=== PATIENT | female | born 1965 | race Caucasian/White ===

== ENCOUNTER 2016-11-10 10:55 | Emergency (ER) | payer BC ==
[~2016-11-10] VITALS: Ht 170.2 cm; Wt 158.7 kg
[~2016-11-10 10:55] MED LIST: ACET-1311 PO; CZR50 PO; DOCU100C31 PO; FERR1TAB13 PO; FLNIN NAE; HYDR25TA4 PO; METR1GEL3 TOP; NYST100098 TOP; PRLSR20 PO; SALI0.6517 INTNAS; SENN-61 PO
[2016-11-10 11:02] VITALS: TEMP 37.3; Ht 170.2 cm; Wt 158.7 kg
--- NOTE | 2016-11-10 12:23 | EMERGENCY ROOM VISIT NOTE ---
History First contact with patient: 11:29 Chief Complaint: CARDIAC ASSESSMENT Stated Complaint: PINCHING ON LT SIDE OF CHEST, RIDDLE, TIRED Nursing Triage Summary: Pt was at her doctors office this morning. While she was there her systolic blood pressure was elevated. Pt states that her blood pressure medication was changed a couple of weeks ago. Pt also noted that she has a pinching feeling near her sternum. She stated that she has also experienced some SOB and weakness recently. History of Present Illness The patient is a 51 year old female who presents to the Emergency Room with complaints of chest pain and headache and fatigue. The patient states that she has had intermittent "pinching" in the left side of her chest for the last 4 days. She cannot think of any alleviating or aggravating factors. The patient rates her chest discomfort a 2/10. She has a history of SVT and had surgery to freeze the area as she was in an investigational study for SVT. She has not had any trouble since then. She has had hypertension and recently had her medications changed. The patient also has had pain in the right calf. The patient had back surgery in March. She has had significant limited mobility since the surgery. She denies any recent illness, earache, sore throat, cough. She denies any abdominal pain, nausea or vomiting. Review of Systems A 10 system review of systems was completed with positives and pertinent negatives listed in the HPI. Past Medical/Surgical History Medical Problems: (1) Chronic Sinusitis Nos (2) Diverticulosis Colon (W/O Ment Of Hemorrhage) (3) Gastro-Esophageal Reflux Disease Without Esophagitis (4) Hypertension (5) Lumbar degenerative disc disease (6) Obesity, Nos (7) Obstructive Sleep Apnea (Adult) (Pediatric) (8) Paroxysmal supraventricular tachycardia Surgical Problems: (1) History of arthroscopic knee surgery (2) History of tubal ligation (3) Normal sigmoidoscopy Family History Diabetes mellitus FH: breast cancer FH: diabetes mellitus FH: ovarian cancer Hypertension Rectal cancer Social History Smoking Status: Never Smoker Alcohol Use: none Drug Use: none Marital Status: Housing Status: lives with family Occupation Status: employed Current/Historical Medications Scheduled Acetaminophen (Tylenol), 650 MG PO BID Amlodipine (Norvasc), 5 MG PO DAILY Losartan Potassium & Hydrochlo (Hyzaar), 1 TAB PO DAILY Omeprazole (Prilosec), 20 MG PO BID Scheduled PRN Fluticasone Propionate (Flonase Nasal [place]), 2 SPRAYS ALON QPM PRN for Nasal Congestion Allergies Coded Allergies: Caffeine (Verified Allergy, Severe, SVT, 06/11/16) NO KNOWN DRUG ALLERGIES (Unverified Allergy, Unknown, NONE, 06/11/16) Physical Exam Vital Signs Date Time Temp Pulse Resp B/P Pulse Ox O2 Delivery O2 Flow Rate FiO2 11/10/16 16:51 87 18 144/66 95 11/10/16 15:14 83 11/10/16 15:12 82 20 149/73 96 Room Air 11/10/16 13:16 87 20 132/76 98 Room Air 11/10/16 11:36 91 11/10/16 11:22 95 Room Air 11/10/16 11:02 37.3 101 18 199/91 95 Room Air Physical Exam VITALS: Vitals are noted on the nurse's note and reviewed by myself. Vital signs stable. The patient is afebrile. She is tachycardic with heart rate 104 bpm. Her oxygen saturation is 95% on room air. GENERAL: This is a 51-year-old female, in no acute distress, nondiaphoretic, well-developed well-nourished. SKIN: The skin was without rashes, erythema, edema, or bruising. There is no tenting of the skin. Capillary reflex less than 2 seconds. HEAD: Normocephalic atraumatic. EARS: External auditory canals clear, tympanic membranes pearly shahid without erythema or effusion bilaterally. EYES: Pupils equal round and reactive to light and accommodation. Conjunctivae without injection, sclerae without icterus. Extraocular movements intact. NOSE: Patent, turbinates without inflammation or discharge. No sinus tenderness. MOUTH: Mucous membranes moist. Tonsils are not enlarged. Pharynx without erythema or exudate. Uvula midline. Airway patent. Tongue does not deviate. NECK: Supple without nuchal rigidity. Cervical spine is nontender. No JVD. HEART: Regular rate and rhythm without murmurs gallops or rubs. LUNGS: Clear to auscultation bilaterally without wheezes, rales or rhonchi. No retractions or accessory muscle use. ABDOMEN: Positive bowel sounds x 4. Soft, nontender, without masses or organomegaly. MUSCULOSKELETAL: No muscle atrophy, erythema, or edema noted. Full range of motion in all extremities. Normal gait. Strength 5/5 throughout. NEURO: Patient was alert and oriented to person place and time. No focal neurological deficits. Medical Decision & Procedures ER Provider Diagnostic Interpretation: CHEST ONE VIEW PORTABLE CLINICAL HISTORY: Chest pain. COMPARISON STUDY: Chest radiograph June 11, 2016. FINDINGS: Lung volumes are normal. No consolidation is identified. There is no evidence of pulmonary edema. Cardiomediastinal silhouette is stable. Apparent hazy bibasilar opacities are likely artifactual. Lumbar spine fusion hardware is partially imaged. IMPRESSION: No acute cardiopulmonary findings. [~ rep ct add3]] RIGHT LOWER EXTREMITY VENOUS DOPPLER HISTORY: right leg pain Right COMPARISON STUDY: Bilateral leg venous Doppler 07/06/2014. FINDINGS: There is normal compressibility, flow, and augmentation within the right lower extremity deep venous system. IMPRESSION: No DVT within the right lower extremity Laboratory Results 11/10/16 12:55 Red Blood Count 4.66, Mean Corpuscular Volume 82.8, Mean Corpuscular Hemoglobin 28.3, Mean Corpuscular Hemoglobin Concent 34.2, Mean Platelet Volume 9.2, Neutrophils (%) (Auto) 76.2, Lymphocytes (%) (Auto) 17.3, Monocytes (%) (Auto) 4.5, Eosinophils (%) (Auto) 1.4, Basophils (%) (Auto) 0.2, Neutrophils # (Auto) 6.45, Lymphocytes # (Auto) 1.46, Monocytes # (Auto) 0.38, Eosinophils # (Auto) 0.12, Basophils # (Auto) 0.02 11/10/16 14:13 11/10/16 15:30 Test 11/10/16 12:55 11/10/16 13:07 11/10/16 14:13 11/10/16 15:30 White Blood Count 8.46 K/uL (4.8-10.8) Red Blood Count 4.66 M/uL (4.2-5.4) Hemoglobin 13.2 g/dL (12.0-16.0) Hematocrit 38.6 % (37-47) Mean Corpuscular Volume 82.8 fL (80-100) Mean Corpuscular Hemoglobin 28.3 pg (25-34) Mean Corpuscular Hemoglobin Concent 34.2 g/dl (32-36) Platelet Count 257 K/uL (130-400) Mean Platelet Volume 9.2 fL (7.4-10.4) Neutrophils (%) (Auto) 76.2 % Lymphocytes (%) (Auto) 17.3 % Monocytes (%) (Auto) 4.5 % Eosinophils (%) (Auto) 1.4 % Basophils (%) (Auto) 0.2 % Neutrophils # (Auto) 6.45 K/uL (1.4-6.5) Lymphocytes # (Auto) 1.46 K/uL (1.2-3.4) Monocytes # (Auto) 0.38 K/uL (0.11-0.59) Eosinophils # (Auto) 0.12 K/uL (0-0.5) Basophils # (Auto) 0.02 K/uL (0-0.2) RDW Standard Deviation 44.2 fL (36.4-46.3) RDW Coefficient of Variation 14.6 % (11.5-14.5) Immature Granulocyte % (Auto) 0.4 % Immature Granulocyte # (Auto) 0.03 K/uL (0.00-0.02) Prothrombin Time 10.2 SECONDS (9.0-12.0) Prothromb Time International Ratio 1.0 (0.9-1.1) Activated Partial Thromboplast Time 26.9 SECONDS (21.0-31.0) Partial Thromboplastin Ratio 1.0 D-Dimer 390 ug/L FEU (0-500) Urine Color YELLOW Urine Appearance CLEAR (CLEAR) Urine pH 7.0 (4.5-7.5) Urine Specific [place] 1.005 (1.000-1.030) Urine Protein NEG (NEG) Urine Glucose (UA) NEG (NEG) Urine Ketones NEG (NEG) Urine Occult Blood NEG (NEG) Urine Nitrite NEG (NEG) Urine Bilirubin NEG (NEG) Urine Urobilinogen NEG (NEG) Urine Leukocyte Esterase NEG (NEG) Anion Gap 11.0 mmol/L (3-11) Est Creatinine Clear Calc Drug Dose 163.8 ml/min Estimated GFR () 118.7 Estimated GFR (Non- 102.4 BUN/Creatinine Ratio 18.2 (10-20) Calcium Level 9.9 mg/dl (8.5-10.1) Total Bilirubin 0.5 mg/dl (0.2-1) Alanine Aminotransferase (ALT/SGPT) 52 U/L (12-78) Alkaline Phosphatase 99 U/L (45-117) Creatine Kinase MB 0.9 ng/ml (0.5-3.6) Creatine Kinase MB Ratio (0-3.0) Troponin I < 0.015 ng/ml (0-0.045) Total Protein 8.0 gm/dl (6.4-8.2) Albumin 3.7 gm/dl (3.4-5.0) Globulin 4.3 gm/dl (2.5-4.0) Albumin/Globulin Ratio 0.9 (0.9-2) Thyroid Stimulating Hormone (TSH) 1.450 uIu/ml (0.300-4.500) Aspartate Amino Transf (AST/SGOT) 20 U/L (15-37) Total Creatine Kinase 75 U/L (26-192) Procedure The patient was monitored on a production counter. They maintained a normal sinus rhythm without ectopy. ECG Indication: chest pain Rate (beats per minute): 97 Rhythm: normal sinus Findings: no acute ischemic change Change: no significant change ED Course The patient was seen and examined. Previous visits were reviewed. The patient does not have a fever or leukocytosis. She does not have any significant electrolyte abnormalities. Cardiac enzymes were not elevated. TSH was within normal limits. D-dimer was not elevated. Urinalysis was negative. Ultrasound of the right lower extremity was negative for DVT Chest x-ray does not reveal any acute abnormality The patient has had some intermittent sharp pain in the left side of her chest. It has been there for at least 2 days. It is not exertional. The above workup does not reveal any significant abnormality. This could represent musculoskeletal chest wall pain. The patient was advised to monitor her symptoms closely and return with any worsening symptoms. Otherwise, she should follow-up with her family doctor next week. The case was discussed with Dr. Greenfield and EKG reviewed with him and he agrees with the assessment and treatment plan. Medical Decision DIFFERENTIAL DIAGNOSIS: Aortic dissection, myocarditis, pericarditis, cervical disc disease, costochondritis, herpes zoster, rib fracture, pleuritis, pneumonia , pulmonary embolus, tension pneumothorax, anxiety disorder, somatoform disorder , choledocholithiasis, status, esophagitis, esophageal spasm, esophageal reflux , esophageal rupture, pancreatitis, peptic ulcer disease, cardiac ischemia, ST elevation RI, acute coronary syndrome, arrhythmia, coronary artery vasospasm. vavular heart disease, coronary artery disease, among others. Impression Primary Impression: Chest wall pain Additional Impression: Right calf pain Departure Information Dispostion Home / Self-Care Condition GOOD Referrals Alex Shepherd M.D. (PCP) [facility] Additional Instructions Follow up with your family doctor next week for a recheck Monitor your blood pressures over the next week Return to the emergency Department with any worsening symptoms Problem Qualifiers
--- NOTE | 2016-11-10 12:57 | DIAGNOSTIC IMAGING REPORT ---
CHEST ONE VIEW PORTABLE CLINICAL HISTORY: Chest pain. COMPARISON STUDY: Chest radiograph June 11, 2016. FINDINGS: Lung volumes are normal. No consolidation is identified. There is no evidence of pulmonary edema. Cardiomediastinal silhouette is stable. Apparent hazy bibasilar opacities are likely artifactual. Lumbar spine fusion hardware is partially imaged. IMPRESSION: No acute cardiopulmonary findings. Electronically signed by: Jose Parisi M.D. 11/10/2016 12:55 PM Dictated Date/Time: 11/10/2016 12:54 PM
[2016-11-10 13:13] LABS: BASO % 0.2 %; BASO ABS # 0.02 K/uL (0-0.2); COMPLETE YES; EOS % 1.4 %; HEMATOCRIT 38.6 % (37-47); IG% 0.4 %; LYMPH % 17.3 %; LYMPH ABS # 1.46 K/uL (1.2-3.4); MEAN CELL VOLUME 82.8 fL (80-100); MEAN CORPUSCULAR HEMOGLOBIN 28.3 pg (25-34); MEAN CORPUSCULAR HGB CONC 34.2 g/dl (32-36); MEAN PLATELET VOLUME 9.2 fL (7.4-10.4); MONO % 4.5 %; NEUT % 76.2 %; PLATELET COUNT 257 K/uL (130-400); RED BLOOD COUNT 4.66 M/uL (4.2-5.4); WHITE BLOOD COUNT 8.46 K/uL (4.8-10.8)
[2016-11-10] MEDS ORDERED: LOSA100T2 PO (13:13)
[2016-11-10] MEDS ORDERED: AMLO-110 PO (13:13)
[2016-11-10 13:25] LABS: URINE APPEARANCE CLEAR (CLEAR); URINE BILIRUBIN NEG (NEG); URINE COLOR YELLOW; URINE NITRITE NEG (NEG); URINE SPECIFIC GRAVITY 1.005 (1.000-1.030); UROBILINOGEN NEG (NEG); ZZUR CULT IF INDIC CLEAN CATCH NO
[2016-11-10 13:25] LABS: PROTHROMBIN TIME (PATIENT) 10.2 SECONDS (9.0-12.0)
--- NOTE | 2016-11-10 13:54 | DIAGNOSTIC IMAGING REPORT ---
RIGHT LOWER EXTREMITY VENOUS DOPPLER HISTORY: right leg pain Right COMPARISON STUDY: Bilateral leg venous Doppler 07/06/2014. FINDINGS: There is normal compressibility, flow, and augmentation within the right lower extremity deep venous system. IMPRESSION: No DVT within the right lower extremity Electronically signed by: Marshal Perez M.D. 11/10/2016 1:52 PM Dictated Date/Time: 11/10/2016 1:51 PM
[2016-11-10 14:15] LABS: MANUAL MICROSCOPIC REQUIRED? NO; REVIEW REQ? NO
[2016-11-10 15:18] LABS: ALB/GLOB RATIO 0.9 (0.9-2); ALKALINE PHOSPHATASE 99 U/L (45-117); ALT/SGPT 52 U/L (12-78); BLOOD UREA NITROGEN 11 mg/dl (7-18); BUN/CREATININE RATIO 18.2 (10-20); CALCIUM 9.9 mg/dl (8.5-10.1); CARBON DIOXIDE 26 mmol/L (21-32); CHLORIDE 102 mmol/L (98-107); CREATININE 0.63 mg/dl (0.60-1.20); GLUCOSE 102 mg/dl (70-99); SODIUM 139 mmol/L (136-145)
[2016-11-10 15:56] LABS: POTASSIUM 3.6 mmol/L (3.5-5.1)
[2016-11-10 16:51] VITALS: BP 144/66; PULSE 87; O2SAT 95
== END 2016-11-10 16:53 | disposition home or self-care (01) ==
LOC: C.EDB 10:58 → C.EDC 16:53
DX: R07.89 Other chest pain (principal); M79.661 Pain in right lower leg; I10 Essential (primary) hypertension; K21.0 Gastro-esophageal reflux disease with esophagitis; E66.9 Obesity, unspecified; Z98.51 Tubal ligation status; Z98.890 Other specified postprocedural states

== ENCOUNTER 2017-02-20 18:09 | Emergency (ER) | payer BC ==
[~2017-02-20] VITALS: Ht 170.2 cm; Wt 159.3 kg
[~2017-02-20 18:09] MED LIST changes: +AMLO-110 PO; -CZR50 PO; -DOCU100C31 PO; -FERR1TAB13 PO; -HYDR25TA4 PO; +LOSA100T2 PO; -METR1GEL3 TOP; -NYST100098 TOP; -SALI0.6517 INTNAS; -SENN-61 PO
[2017-02-20] MEDS ORDERED: ACETAMINOPHEN 500 MG TAB PO STA (18:36)
[2017-02-20] MEDS ORDERED: SODIUM CHLORIDE 0.9% 1000ML 1,000 ML IV STA (18:36)
--- NOTE | 2017-02-20 19:10 | EMERGENCY ROOM VISIT NOTE ---
History Report prepared by Mimi: Bartolo Willis Under the Supervision of: Dr. Gage Oreilly M.D. First contact with patient: 18:26 Chief Complaint: URINARY SYMPTOMS Stated Complaint: LOW GRADE FEVER, PAIN IN LEFT&RIGHT SIDES History of Present Illness The patient is a 51 year old female who presents to the Emergency Room with complaints of a constant fever starting last night. She is additionally complaining of left back pain,left abdominal pain, and chills. The patient states that she has an increased frequency of urination and some pressure. The patient denies any vomiting or a history of diabetes or diverticulitis. The patient additionally states that she has not been eating very well. She states that she has a history of bladder infections and back surgery. Source of History: patient Onset: last night Position: other (fever) Quality: other Timing: constant Associated Symptoms: + abdominal pain, + back pain, + chills, No vomiting Review of Systems See HPI for pertinent positives & negatives. A total of 10 systems reviewed and were otherwise negative. Past Medical & Surgical Medical Problems: (1) Chronic Sinusitis Nos (2) Diverticulosis Colon (W/O Ment Of Hemorrhage) (3) Gastro-Esophageal Reflux Disease Without Esophagitis (4) Hypertension (5) Lumbar degenerative disc disease (6) Obesity, Nos (7) Obstructive Sleep Apnea (Adult) (Pediatric) (8) Paroxysmal supraventricular tachycardia Surgical Problems: (1) History of arthroscopic knee surgery (2) History of tubal ligation (3) Normal sigmoidoscopy Family History Diabetes mellitus FH: breast cancer FH: diabetes mellitus FH: ovarian cancer Hypertension Rectal cancer Social History Smoking Status: Never Smoker Alcohol Use: none Drug Use: none Marital Status: Housing Status: lives with family Occupation Status: employed Current/Historical Medications Scheduled Acetaminophen (Tylenol), 650 MG PO DAILY Amlodipine (Norvasc), 5 MG PO DAILY Cefdinir (Omnicef), 300 MG PO Q12H Ciprofloxacin Hcl (Cipro), 500 MG PO BID Furosemide (Furosemide), 20 MG PO QAM Losartan Potassium (Cozaar), 100 MG PO QAM Meloxicam (Meloxicam), 15 MG PO QAM Scheduled PRN Omeprazole (Prilosec), 20 MG PO DAILY PRN for PRN Allergies Coded Allergies: Caffeine (Verified Allergy, Severe, SVT, 02/22/17) NO KNOWN DRUG ALLERGIES (Unverified Allergy, Unknown, NONE, 02/20/17) Physical Exam Vital Signs Date Time Temp Pulse Resp B/P Pulse Ox O2 Delivery O2 Flow Rate FiO2 02/20/17 22:07 73 20 107/65 94 02/20/17 21:22 36.7 76 20 124/68 96 Room Air 02/20/17 21:04 Room Air 02/20/17 19:47 37.4 02/20/17 18:18 39.1 106 20 139/78 94 Room Air Physical Exam GENERAL: Patient is uncomfortable appearing and in mild distress. HEENT: No acute trauma, normocephalic atraumatic, mucous membranes moist, no nasal congestion, no scleral icterus. NECK: No stridor, no adenopathy, no meningismus, trachea is midline. LUNGS: No dyspnea. Clear to auscultation and equal bilaterally. No wheeze, no rhonchi. HEART: tachycardic rate and rhythm. No murmurs, rubs, gallops appreciated. ABDOMEN: Soft, nontender, bowel sounds positive, no masses appreciated, no peritonitis. BACK: No midline tenderness, bilateral tenderness to palpation. EXTREMITIES: Normal motion all extremities, no cyanosis, no edema. NEUROLOGIC: Alert and oriented, no acute motor or sensory deficits, no focal weakness, cranial nerves grossly intact. SKIN: No rash, no jaundice, no diaphoresis. Medical Decision & Procedures Laboratory Results 02/20/17 19:00 Red Blood Count 4.60, Mean Corpuscular Volume 85.9, Mean Corpuscular Hemoglobin 28.5, Mean Corpuscular Hemoglobin Concent 33.2, Mean Platelet Volume 9.8, Neutrophils (%) (Auto) 84.2, Lymphocytes (%) (Auto) 8.1, Monocytes (%) (Auto) 6.8, Eosinophils (%) (Auto) 0.4, Basophils (%) (Auto) 0.1, Neutrophils # (Auto) 11.43, Lymphocytes # (Auto) 1.10, Monocytes # (Auto) 0.92, Eosinophils # (Auto) 0.06, Basophils # (Auto) 0.02 02/20/17 19:00 Test 02/20/17 19:00 02/20/17 19:43 White Blood Count 13.59 K/uL (4.8-10.8) Red Blood Count 4.60 M/uL (4.2-5.4) Hemoglobin 13.1 g/dL (12.0-16.0) Hematocrit 39.5 % (37-47) Mean Corpuscular Volume 85.9 fL (80-100) Mean Corpuscular Hemoglobin 28.5 pg (25-34) Mean Corpuscular Hemoglobin Concent 33.2 g/dl (32-36) Platelet Count 271 K/uL (130-400) Mean Platelet Volume 9.8 fL (7.4-10.4) Neutrophils (%) (Auto) 84.2 % Lymphocytes (%) (Auto) 8.1 % Monocytes (%) (Auto) 6.8 % Eosinophils (%) (Auto) 0.4 % Basophils (%) (Auto) 0.1 % Neutrophils # (Auto) 11.43 K/uL (1.4-6.5) Lymphocytes # (Auto) 1.10 K/uL (1.2-3.4) Monocytes # (Auto) 0.92 K/uL (0.11-0.59) Eosinophils # (Auto) 0.06 K/uL (0-0.5) Basophils # (Auto) 0.02 K/uL (0-0.2) RDW Standard Deviation 42.3 fL (36.4-46.3) RDW Coefficient of Variation 13.6 % (11.5-14.5) Immature Granulocyte % (Auto) 0.4 % Immature Granulocyte # (Auto) 0.06 K/uL (0.00-0.02) Urine Color YELLOW Urine Appearance CLOUDY (CLEAR) Urine pH 6.5 (4.5-7.5) Urine Specific [place] 1.021 (1.000-1.030) Urine Protein TRACE (NEG) Urine Glucose (UA) NEG (NEG) Urine Ketones NEG (NEG) Urine Occult Blood 2+ (NEG) Urine Nitrite NEG (NEG) Urine Bilirubin NEG (NEG) Urine Urobilinogen NEG (NEG) Urine Leukocyte Esterase LARGE (NEG) Urine WBC (Auto) >30 /hpf (0-5) Urine RBC (Auto) >30 /hpf (0-4) Urine Hyaline Casts (Auto) 0 /lpf (0-5) Urine Epithelial Cells (Auto) >30 /lpf (0-5) Urine Bacteria (Auto) 2+ (NEG) Urine Pathogenic Casts /lpf (0) Anion Gap 9.0 mmol/L (3-11) Est Creatinine Clear Calc Drug Dose 104.5 ml/min Estimated GFR () 75.4 Estimated GFR (Non- 65.1 BUN/Creatinine Ratio 14.5 (10-20) Calcium Level 9.2 mg/dl (8.5-10.1) Bedside Lactic Acid Venous 0.88 mmol/L (0.90-1.70) Date/Time Source Procedure Growth Status 02/20/17 19:00 Urine,Catheterized Urine Culture - Final Proteus Mirabilis Complete Laboratory results as reviewed by me. Medications Administered Medications (Trade) Dose Ordered Sig/Yasmine Route Start Time Stop Time Status Last Admin Dose Admin Sodium Chloride (Nss 1000ml) 1,000 ml @ 999 mls/hr Q1H1M STAT IV 02/20/17 18:36 02/20/17 19:36 DC 02/20/17 18:36 999 MLS/HR Acetaminophen (Tylenol Tab) 1,000 mg NOW STAT PO 02/20/17 18:36 02/20/17 18:38 DC 02/20/17 18:50 1,000 MG Ceftriaxone Sodium (Rocephin Inj) 1 gm NOW STAT IV 02/20/17 20:58 02/20/17 21:00 DC 02/20/17 21:18 1 GM ED Course 1825: The patient was evaluated in room B3. A complete history and physical exam was performed. 1835: Tylenol Tab 1000mg PO, Sodium Chloride 1000 ml @ 999 mls/hr IV 2013: I reevaluated the patient, and she is feeling much better after fluids. Her fever has improved, and she doesn't need anything else right now 2057: Rocephin Inj 1gm IV 2105: I reassessed the patient, and she is feeling much better. She is going to see if she is able to get up and walk around. 2143: Reevaluated the patient, and she feels better. Discussed results and discharge instructions: She verbalized understanding and agreement. The patient is ready for discharge. Medical Decision Differential: Viral, Pharyngitis, Cellulitis, Pneumonia, Influenza, Meningitis, Sepsis, Bacteremia, UTI/Pyelonephritis, Endocrine, Toxicologic, amongst other pathologies entertained. Pleasant 51 yr old female arrives ill with UTI symptoms. Exam and story consistent with pyelo and given positive UA and mod wbc elevation this seems accurate. Lactic acid ok and vitals look good. Feeling vastly improved with IV fluids and anti-pyretics. Able to ambulate without significant issues. Given IV rocephin post blood cultures. She is not in severe sepsis and is much improved after treatment. Discussed at length inpatient vs outpatient treatment. She is comfortable with going home. She lives with . Will treat with PO Omnicef given rocephin used here initially. She does not have abdominal TTP nor evidence of acute intraabdominal emergency. Discussed at length symptoms to monitor and that RTED immediately if worsening symptoms or other concerns. Discussed blood cultures and they may take several days to return. Impression Primary Impression: Pyelonephritis Scribe Attestation The scribe's documentation has been prepared under my direction and personally reviewed by me in its entirety. I confirm that the note above accurately reflects all work, treatment, procedures, and medical decision making performed by me. Departure Information Dispostion Home / Self-Care Prescriptions Cefdinir (Omnicef) 300 Mg Cap 300 MG PO Q12H for 10 Days, #20 CAP Prov: Gage Oreilly M.D. 02/20/17 Referrals Alex Shepherd M.D. (PCP) Forms HOME CARE DOCUMENTATION FORM, IMPORTANT VISIT INFORMATION Patient Instructions My [facility], Pyelonephritis - [facility]
[2017-02-20 19:49] LABS: BASO % 0.1 %; BASO ABS # 0.02 K/uL (0-0.2); COMPLETE YES; EOS % 0.4 %; HEMATOCRIT 39.5 % (37-47); IG% 0.4 %; LYMPH % 8.1 %; MEAN CELL VOLUME 85.9 fL (80-100); MEAN CORPUSCULAR HEMOGLOBIN 28.5 pg (25-34); MEAN CORPUSCULAR HGB CONC 33.2 g/dl (32-36); MEAN PLATELET VOLUME 9.8 fL (7.4-10.4); MONO % 6.8 %; NEUT % 84.2 %; PLATELET COUNT 271 K/uL (130-400); WHITE BLOOD COUNT 13.59 K/uL (4.8-10.8)
[2017-02-20 20:07] LABS: BUN/CREATININE RATIO 14.5 (10-20); CALCIUM 9.2 mg/dl (8.5-10.1); CREATININE 0.99 mg/dl (0.60-1.20); POTASSIUM 3.7 mmol/L (3.5-5.1)
[2017-02-20] MEDS ORDERED: MELO15TA4 PO (20:19)
[2017-02-20] MEDS ORDERED: LOSA100T65 PO (20:19)
[2017-02-20] MEDS ORDERED: LSX20 PO (20:19)
[2017-02-20 20:54] LABS: URINE APPEARANCE CLOUDY (CLEAR); URINE BILIRUBIN NEG (NEG); URINE COLOR YELLOW; URINE EPITHELIAL CELL AUTO >30 /lpf (0-5); URINE NITRITE NEG (NEG); URINE PH 6.5 (4.5-7.5); URINE SPECIFIC GRAVITY 1.021 (1.000-1.030); UROBILINOGEN NEG (NEG); ZZURINE CULT IF INDIC CATH YES
[2017-02-20 20:57] LABS: MANUAL MICROSCOPIC REQUIRED? NO; REVIEW REQ? YES
[2017-02-20] MEDS ORDERED: CEFTRIAXONE SOD INJ 1 GM ADDVIAL IV STA (20:58)
[2017-02-20 21:04] VITALS: Ht 170.2 cm; Wt 159.3 kg
[2017-02-20 21:22] VITALS: TEMP 36.7
[2017-02-20] MEDS ORDERED: CEFD1CAP14 PO (21:47)
[2017-02-20 22:07] VITALS: BP 107/65; PULSE 73; O2SAT 94
--- NOTE | 2017-02-22 12:37 | Pharmacy Progress Note ---
ED Pharmacist Culture FollowUp Date of Service: Feb 22, 2017. Patient was sent home with a prescription for cefdinir, which should cover the Proteus growing from the patient's urine culture. However, 1 of 2 blood cultures are positive for Gram positive cocci and Gram positive bacilli. Potentially contaminants, but follow-up will be important. Called patient. She reports improvement of symptoms, but is still very "worn down". Notified of result. Emphasized the importance of re-check blood cultures and re-evaluation today, either at PCP or at ED. Patient noted she will return to ED today.
== END 2017-02-20 22:08 | disposition home or self-care (01) ==
LOC: C.EDB 18:10
DX: N12 Tubulo-interstitial nephritis, not specified as acute or chronic (principal); K21.9 Gastro-esophageal reflux disease without esophagitis; I10 Essential (primary) hypertension; G47.33 Obstructive sleep apnea (adult) (pediatric); M51.36 Other intervertebral disc degeneration, lumbar region; Z68.43 Body mass index [BMI] 50.0-59.9, adult; E66.9 Obesity, unspecified; Z98.51 Tubal ligation status; Z83.3 Family history of diabetes mellitus; Z80.3 Family history of malignant neoplasm of breast; Z80.41 Family history of malignant neoplasm of ovary; Z80.0 Family history of malignant neoplasm of digestive organs; Z82.49 Family history of ischemic heart disease and other diseases of the circulatory system; Z79.899 Other long term (current) drug therapy

== ENCOUNTER 2017-02-22 13:00 | Emergency (ER) | payer BC ==
[~2017-02-22] VITALS: Ht 170.2 cm; Wt 158.5 kg
[~2017-02-22 13:00] MED LIST changes: -ACET-1311 PO; +CEFD1CAP14 PO; -FLNIN NAE; -LOSA100T2 PO; +LOSA100T65 PO; +LSX20 PO; +MELO15TA4 PO
[2017-02-22 13:06] VITALS: Ht 170.2 cm; Wt 158.5 kg
[2017-02-22] MEDS ORDERED: SODIUM CHLORIDE 0.9% 1000ML 1,000 ML IV STA (13:22)
[2017-02-22] MEDS ORDERED: SODIUM CHLORIDE 0.9% 1000ML 1,000 ML IV ONE (13:22)
--- NOTE | 2017-02-22 13:27 | EMERGENCY ROOM VISIT NOTE ---
History Report prepared by Mimi: Familia Everett Under the Supervision of: Dr. Reginaldo Brewer M.D. First contact with patient: 13:12 Chief Complaint: ABNORMAL LABS Stated Complaint: KIDNEY INFECTION CALLED FOR BLOODWORK History of Present Illness The patient is a 51 year old female who presents to the Emergency Room after having abnormal labs from a few days ago. The patient was recently in the ED with a kidney infection. Her blood culture results came back today and were abnormal. She was asked to return to the ED to draw labs again. The patient notes that she is feeling a little better since 2 days ago when she was diagnosed with a kidney infection. She had IV antibiotics 2 nights ago and took her first antibiotic orally yesterday. The patient complains that she still feels fatigued and has been sleeping more than usual. The patient also complains of a pressure in her abdomen, dark urine, some back pain, chills, and subjective fever. She denies vomiting, but she notes she has also has a decreased appetite. Source of History: patient, spouse/significant other Onset: few days ago Position: other (global) Associated Symptoms: + abdominal pain (pressure), + back pain, + chills, + fatigue (sleeping more), + fevers (subjective), + urinary symptoms (darj urine) , No vomiting Note: Other associated symptoms: decreased appetite. Review of Systems See HPI for pertinent positives & negatives. A total of 10 systems reviewed and were otherwise negative. Past Medical & Surgical Medical Problems: (1) Chronic Sinusitis Nos (2) Diverticulosis Colon (W/O Ment Of Hemorrhage) (3) Gastro-Esophageal Reflux Disease Without Esophagitis (4) Hypertension (5) Lumbar degenerative disc disease (6) Obesity, Nos (7) Obstructive Sleep Apnea (Adult) (Pediatric) (8) Paroxysmal supraventricular tachycardia Surgical Problems: (1) History of arthroscopic knee surgery (2) History of tubal ligation (3) Normal sigmoidoscopy Old medical records were reviewed. Nurse's notes were reviewed and I agree with. Family History Diabetes mellitus FH: breast cancer FH: diabetes mellitus FH: ovarian cancer Hypertension Rectal cancer Social History Smoking Status: Never Smoker Alcohol Use: none Drug Use: none Marital Status: Housing Status: lives with family Occupation Status: employed Current/Historical Medications Scheduled Acetaminophen (Tylenol), 650 MG PO DAILY Amlodipine (Norvasc), 5 MG PO DAILY Cefdinir (Omnicef), 300 MG PO Q12H Ciprofloxacin Hcl (Cipro), 500 MG PO BID Furosemide (Furosemide), 20 MG PO QAM Losartan Potassium (Cozaar), 100 MG PO QAM Meloxicam (Meloxicam), 15 MG PO QAM Scheduled PRN Omeprazole (Prilosec), 20 MG PO DAILY PRN for PRN Allergies Coded Allergies: Caffeine (Verified Allergy, Severe, SVT, 02/22/17) NO KNOWN DRUG ALLERGIES (Unverified Allergy, Unknown, NONE, 02/20/17) Physical Exam Vital Signs Date Time Temp Pulse Resp B/P Pulse Ox O2 Delivery O2 Flow Rate FiO2 02/22/17 15:25 36.9 66 16 102/57 97 02/22/17 14:33 62 18 118/53 98 Room Air 02/22/17 13:06 36.9 78 20 165/98 98 Room Air Physical Exam General: Non ill-appearing middle-aged female, no acute distress. HEENT: Normal cephalic atraumatic. Pupils are equal round and reactive to light. Extraocular movements are intact. Oropharynx is pink with moist mucous membranes. No swelling of the mouth lips or tongue. Neck: Supple with a midline trachea. No meningeal signs or stiffness, no JVD or bruits. No Stridor. Chest: Clear to auscultation bilaterally. No wheezes or rhonchi. No increased work of breathing. Heart: regular rate and rhythm. Abdomen: Soft nontender, nondistended without rebound guarding or rigidity. Extremities: No cyanosis clubbing or edema. No calf tenderness or assymetry Spine/Back. Non tender to palpation. No CVA tenderness Skin: Good turgor without rashes. Neurologic exam: Cranial nerves two through 12 are intact. Motor and sensation are intact and symmetrical throughout. Medical Decision & Procedures Laboratory Results 02/22/17 13:33 Red Blood Count 4.36, Mean Corpuscular Volume 85.6, Mean Corpuscular Hemoglobin 28.7, Mean Corpuscular Hemoglobin Concent 33.5, Mean Platelet Volume 9.2, Neutrophils (%) (Auto) 78.9, Lymphocytes (%) (Auto) 12.9, Monocytes (%) (Auto) 5.9, Eosinophils (%) (Auto) 1.9, Basophils (%) (Auto) 0.1, Neutrophils # (Auto) 5.36, Lymphocytes # (Auto) 0.88, Monocytes # (Auto) 0.40, Eosinophils # (Auto) 0.13, Basophils # (Auto) 0.01 02/22/17 13:33 Test 02/22/17 13:33 White Blood Count 6.80 K/uL (4.8-10.8) Red Blood Count 4.36 M/uL (4.2-5.4) Hemoglobin 12.5 g/dL (12.0-16.0) Hematocrit 37.3 % (37-47) Mean Corpuscular Volume 85.6 fL (80-100) Mean Corpuscular Hemoglobin 28.7 pg (25-34) Mean Corpuscular Hemoglobin Concent 33.5 g/dl (32-36) Platelet Count 196 K/uL (130-400) Mean Platelet Volume 9.2 fL (7.4-10.4) Neutrophils (%) (Auto) 78.9 % Lymphocytes (%) (Auto) 12.9 % Monocytes (%) (Auto) 5.9 % Eosinophils (%) (Auto) 1.9 % Basophils (%) (Auto) 0.1 % Neutrophils # (Auto) 5.36 K/uL (1.4-6.5) Lymphocytes # (Auto) 0.88 K/uL (1.2-3.4) Monocytes # (Auto) 0.40 K/uL (0.11-0.59) Eosinophils # (Auto) 0.13 K/uL (0-0.5) Basophils # (Auto) 0.01 K/uL (0-0.2) RDW Standard Deviation 43.4 fL (36.4-46.3) RDW Coefficient of Variation 13.8 % (11.5-14.5) Immature Granulocyte % (Auto) 0.3 % Immature Granulocyte # (Auto) 0.02 K/uL (0.00-0.02) Anion Gap 8.0 mmol/L (3-11) Est Creatinine Clear Calc Drug Dose 117.1 ml/min Estimated GFR () 86.9 Estimated GFR (Non- 75.0 BUN/Creatinine Ratio 13.3 (10-20) Calcium Level 9.1 mg/dl (8.5-10.1) Total Bilirubin 0.5 mg/dl (0.2-1) Direct Bilirubin 0.1 mg/dl (0-0.2) Aspartate Amino Transf (AST/SGOT) 19 U/L (15-37) Alanine Aminotransferase (ALT/SGPT) 29 U/L (12-78) Alkaline Phosphatase 89 U/L (45-117) Total Protein 7.2 gm/dl (6.4-8.2) Albumin 3.2 gm/dl (3.4-5.0) Lipase 65 U/L (73-393) Laboratory studies as stated above per my review. Medications Administered Medications (Trade) Dose Ordered Sig/Yasmine Route Start Time Stop Time Status Last Admin Dose Admin Sodium Chloride 1,000 ml @ 999 mls/hr Q1H1M STAT IV 02/22/17 13:22 02/22/17 14:22 DC 02/22/17 13:36 999 MLS/HR Sodium Chloride 1,000 ml @ 150 mls/hr Q6H40M ONCE IV 02/22/17 13:22 02/22/17 20:01 02/22/17 14:25 150 MLS/HR Daptomycin/Sodium Chloride (Cubicin IV/Nss 50ml) 69 ml @ 120 mls/hr NOW STAT IV 02/22/17 13:30 02/22/17 14:04 DC 02/22/17 14:25 120 MLS/HR Ciprofloxacin (Cipro Tab) 500 mg NOW STAT PO 02/22/17 14:26 02/22/17 14:27 DC 02/22/17 14:36 500 MG ED Course 1312: Past medical records reviewed. The patient was evaluated in room C2, and a complete history and physical examination were performed. 1322: Ordered NSS 1000 ml @ 150 mls/hr IV, NSS 1000 ml @ 999 mls/hr IV. 1330: Ordered Daptomycin 950 mg/ NSS 69 ml @ 120 mls/hr IV. 1426: Ordered Cipro Tab 500 mg PO. 1436: At this time, I reevaluated the patient and she was feeling better. 1447: Upon reevaluation, the patient is resting. I discussed the results and treatment plan with her. She verbalized agreement of the treatment plan. The patient was discharged home. Medical Decision Differential diagnoses include sepsis, UTI, pyelonephritis, skin contamination, or electrolyte or metabolic abnormality. This patient comes in as described above. She was placed in room C2. Is here for follow-up after having positive blood cultures. I reviewed them and reviewed her case. The urine culture was positive for Proteus. One blood culture was negative and a second was positive for gram-positive cocci. It may be a contaminant as this is a different organism within the urine and the other one was negative. She looks well on exam she is afebrile here she has no flank tenderness when I tap on her she is starting to feel better she just feels tired. Her abdomen is benign. IV access established every repeated another set of blood cultures and blood work. Her white count has diminished significantly to 6 from 13. She has normal kidney function. I did discuss this with Mellisa, our ED pharmacist, and she recommended daptomycin. She agrees that most likely this is a contaminant. The patient did receive IV daptomycin. This will give her coverage for the next 24 hours well the cultures give us more information. Again clinically she is doing that her and looks well. I reviewed her cultures the urine was pansensitive. She feels that Cipro of better pyelonephritis coverage so I gave her Cipro 500 mg by mouth here and we are going to switch her antibiotic to Cipro 500 mg twice a day. I recommend she follow up with her doctor tomorrow and return to ER if: Fever, worsening of symptoms, not tolerate fluids, any new problems or concerns. Impression Primary Impression: Pyelonephritis Additional Impression: Blood culture positive for microorganism Scribe Attestation The scribe's documentation has been prepared under my direction and personally reviewed by me in its entirety. I confirm that the note above accurately reflects all work, treatment, procedures, and medical decision making performed by me. Departure Information Dispostion Home / Self-Care Prescriptions Ciprofloxacin Hcl (CIPRO) 500 Mg Tab 500 MG PO BID, #20 TAB Prov: Reginaldo Brewer M.D. 02/22/17 Referrals Alex Shepherd M.D. (PCP) Forms HOME CARE DOCUMENTATION FORM, IMPORTANT VISIT INFORMATION, WORK / SCHOOL INSTRUCTIONS Patient Instructions My [facility] Additional Instructions Rest. Drink plenty of fluids. Return if: Worsening of symptoms, shortness of breath, fever or chills, any new problems or concerns Use Cipro 500 mg twice a day for 10 daysreplaces your current antibiotic Follow-up with your doctor tomorrow for recheck. Problem Qualifiers
[2017-02-22] MEDS ORDERED: SODIUM CHLORIDE 0.9% IV STA (13:30)
[2017-02-22] MEDS ORDERED: DAPTOMYCIN IV STA (13:30)
[2017-02-22 13:42] LABS: BASO % 0.1 %; BASO ABS # 0.01 K/uL (0-0.2); COMPLETE YES; EOS % 1.9 %; HEMATOCRIT 37.3 % (37-47); IG% 0.3 %; LYMPH % 12.9 %; LYMPH ABS # 0.88 K/uL (1.2-3.4); MEAN CELL VOLUME 85.6 fL (80-100); MEAN CORPUSCULAR HEMOGLOBIN 28.7 pg (25-34); MEAN CORPUSCULAR HGB CONC 33.5 g/dl (32-36); MEAN PLATELET VOLUME 9.2 fL (7.4-10.4); MONO % 5.9 %; NEUT % 78.9 %; PLATELET COUNT 196 K/uL (130-400); RED BLOOD COUNT 4.36 M/uL (4.2-5.4)
[2017-02-22] MEDS ORDERED: ACET-1311 PO (14:00)
[2017-02-22 14:10] LABS: BUN/CREATININE RATIO 13.3 (10-20); CREATININE 0.88 mg/dl (0.60-1.20); POTASSIUM 3.5 mmol/L (3.5-5.1)
[2017-02-22 14:13] LABS: CALCIUM 9.1 mg/dl (8.5-10.1)
[2017-02-22] MEDS ORDERED: CIPROFLOXACIN 500 MG TAB PO STA (14:26)
[2017-02-22] MEDS ORDERED: CIPR-255 PO (14:55)
[2017-02-22 15:25] VITALS: BP 102/57; PULSE 66; TEMP 36.9; O2SAT 97
== END 2017-02-22 15:25 | disposition home or self-care (01) ==
LOC: C.EDB 13:03 → C.EDC 15:25
DX: N12 Tubulo-interstitial nephritis, not specified as acute or chronic (principal); R78.89 Finding of other specified substances, not normally found in blood; I10 Essential (primary) hypertension; G47.33 Obstructive sleep apnea (adult) (pediatric)

== ENCOUNTER → 2017-04-10 | Outpatient (CLI) | payer BC ==
[~2017-04-10] MED LIST changes: +ACET-1311 PO; -CEFD1CAP14 PO; +CIPR-255 PO
== END | disposition home or self-care (01) ==
LOC: C.LABSPEC 17:30
PROVIDERS: ATTEND Podiatrist Foot & Ankle Surgery
DX: L60.0 Ingrowing nail (principal)

== ENCOUNTER 2017-11-28 20:13 | Inpatient (IN) | payer OTHER ==
[~2017-11-28] VITALS: Ht 170.2 cm; Wt 157.0 kg
[~2017-11-28 20:13] MED LIST changes: -LOSA100T65 PO; -LSX20 PO
[2017-11-28] MEDS ORDERED: LOSA100T65 PO (20:19)
[2017-11-28] MEDS ORDERED: LSX20 PO (20:19)
[2017-11-28] MEDS ORDERED: SODIUM CHLORIDE 0.9% 1000ML 1,000 ML IV STA (21:25)
[2017-11-28] MEDS ORDERED: ACETAMINOPHEN 500 MG TAB PO STA (21:25)
[2017-11-28] MEDS ORDERED: GABAPENTIN 100 MG CAP PO STA (21:40)
[2017-11-28] MEDS ORDERED: OPTIRAY 320 IV PRN (21:45)
[2017-11-28] MEDS ORDERED: NAPR1TAB9 PO (21:49)
[2017-11-28] MEDS ORDERED: FLUT0.15 NAE (21:49)
[2017-11-28] MEDS ORDERED: GABA-112 PO (21:49)
[2017-11-28] MEDS ORDERED: NRN100 PO (21:49)
[2017-11-28 22:37] LABS: BASO % 0.2 %; BASO ABS # 0.03 K/uL (0-0.2); EOS % 0.5 %; EOS ABS # 0.07 K/uL (0-0.5); HEMATOCRIT 38.4 % (37-47); IG# 0.05 K/uL (0.00-0.02); LYMPH % 14.8 %; LYMPH ABS # 2.08 K/uL (1.2-3.4); MEAN CELL VOLUME 85.3 fL (80-100); MEAN CORPUSCULAR HEMOGLOBIN 28.9 pg (25-34); MEAN CORPUSCULAR HGB CONC 33.9 g/dl (32-36); MEAN PLATELET VOLUME 9.7 fL (7.4-10.4); MONO % 6.8 %; MONO ABS # 0.95 K/uL (0.11-0.59); NEUT % 77.3 %; NEUT ABS # 10.83 K/uL (1.4-6.5); PLATELET COUNT 260 K/uL (130-400); RED CELL DISTRIBUTION WIDTH CV 14.5 % (11.5-14.5); WHITE BLOOD COUNT 14.01 K/uL (4.8-10.8)
[2017-11-28 22:53] LABS: ALBUMIN 3.5 gm/dl (3.4-5.0); ALT/SGPT 26 U/L (12-78); BLOOD UREA NITROGEN 14 mg/dl (7-18); CALCIUM 9.3 mg/dl (8.5-10.1); CARBON DIOXIDE 24 mmol/L (21-32); CREATININE 0.83 mg/dl (0.60-1.20); GLUCOSE 157 mg/dl (70-99); LIPASE 65 U/L (73-393); POTASSIUM 3.7 mmol/L (3.5-5.1); SODIUM 135 mmol/L (136-145)
[2017-11-28 22:56] LABS: ALKALINE PHOSPHATASE 88 U/L (45-117); AST/SGOT 12 U/L (15-37); TOTAL PROTEIN 7.6 gm/dl (6.4-8.2)
[2017-11-28 23:25] LABS: INFLUENZA B ANTIGEN Neg for Influ B (NEG)
[2017-11-28] MEDS ORDERED: CEFTRIAXONE SOD INJ 1 GM ADDVIAL IV STA (23:37)
[2017-11-29] VITALS (7 sets, daily range): BP systolic 114–150; BP diastolic 61–82; PULSE 68–85; TEMP 36.8–37.6; O2SAT 94–99; Ht 170.2 cm; Wt 157.0 kg
[2017-11-29] MEDS ORDERED: KETOROLAC TROMETHAMINE 30 MG/ML VIAL IV STA (00:32)
[2017-11-29] MEDS ORDERED: PIPERACILLIN/TAZOBACTAM 4.5 GM/100ML D5W IV STA (00:34)
[2017-11-29] MEDS ORDERED: NSS + 20MEQ KCL 1000ML 1,000 ML IV SCH (00:45)
[2017-11-29] MEDS ORDERED: NSS + 20MEQ KCL 1000ML 1,000 ML IV ONE (01:30)
[2017-11-29] MEDS ORDERED: TRAMADOL HCL 50 MG TAB PO PRN (01:30)
[2017-11-29] MEDS ORDERED: ACETAMINOPHEN 325 MG TAB PO PRN (01:30)
[2017-11-29] MEDS ORDERED: LORAZEPAM 2 MG/ML 1 ML VIAL IV PRN (01:30)
[2017-11-29] MEDS ORDERED: MoRPHine SULFATE 4 MG/ML 1 ML CARP\\VIAL IV PRN (01:30)
[2017-11-29] MEDS ORDERED: PROCHLORPERAZINE INJ 5 MG in SYRINGE 4 ML IV PRN (01:30)
[2017-11-29] MEDS ORDERED: LORAZEPAM INJ 0.5 MG in SYRINGE 0.75 ML IV PRN (02:00)
--- NOTE | 2017-11-29 02:23 | HISTORY & PHYSICAL EXAMINATION ---
DATE OF ADMISSION: 11/29/2017 PRIMARY CARE PHYSICIAN: Alex Shepherd MD. CHIEF COMPLAINT: Left flank pain. HISTORY OF PRESENT ILLNESS: History obtained from patient and records. Medical history significant for hypertension, chronic back pain status prior surgery, PSVT status post-ablation, sleep apnea on CPAP, recurrent UTI. Patient seen at the ER last January 2017 for flank pain, probable pyelonephritis. Cultures grew Proteus mirabilis. Patient prescribed cefdinir, discharged home, improved. Outpatient renal ultrasound showed a probable 8 mm upper pole left renal parenchymal calculus - not likely related to infection as per PCP. Patient had another bout of UTI late last year resolved with outpatient Cipro. A few days history of achy flank pain more on the left, bladder discomfort. Fever, no chills, no hematuria. No chest pain, no shortness of breath. At the Emergency Room, the patient received Zosyn and Ceftriaxone for sepsis. MEDICAL HISTORY: As above. SURGERIES: Back surgery, gynecologic procedures, knee surgery. HOME MEDICATIONS: Include Flonase, furosemide, gabapentin, and Cozaar, Aleve. ALLERGIES: CAFFEINE. FAMILY HISTORY: Diabetes, heart disease, colon cancer. PERSONAL AND SOCIAL HISTORY: Nonsmoker, no chronic ETOH intake, disabled. REVIEW OF SYSTEMS: As per HPI, all 10 systems reviewed, all other ROS negative. PHYSICAL EXAMINATION: VITAL SIGNS: Blood pressure was noted to be 128/60, pulse rate 107 later 79, RR 18, temp 38 GENERAL: Obese, slightly uncomfortable. Very pleasant. No respiratory distress. SKIN: Normal color, warm. HEENT: [place] palpebral conjunctivae. No ptosis. Dry mucosa. NECK: Short, supple. CHEST: Clear auscultation, no tenderness. HEART: Regular rate and rhythm. No murmur. ABDOMEN: Soft, NT BACK : tenderness on the left flank . EXTREMITIES: Minimal LE edema, no tenderness. No gross deformities. NEUROLOGIC: Coherent. No gross focality. LABORATORY DATA: Hemoglobin was noted to be 13, hematocrit 34, white cell 14, platelets noted to be 260. Sodium 136, potassium 3.7, chloride 103, CO2 24, BUN 40, creatinine 0.8, glucose 157. UA nitrite positive. trace occult blood, WBC est is positive. CT abdomen and pelvis initial read large calculus left upper pole, renal calyces 2.5 x 1.6 x 2.3 cm ASSESSMENT: 1. Sepsis secondary to complicated UTI Urolithiasis 2. Hypertension, slightly elevated. 3. Hyperglycemia rule out diabetes. PLAN: GMF CS, Cefepime IV fluids. Urology consult RE urolithiasis (ER physician already in touch with Dr. Mckeon, urologist on-call.) Check hemoglobin A1c. DVT prophylaxis, Lovenox subQ. Full code. MTDD
--- NOTE | 2017-11-29 03:25 | EMERGENCY ROOM VISIT NOTE ---
History Report prepared by Mimi: Nette Chavez Under the Supervision of: Dr. Pollo Zarate M.D. First contact with patient: 21:25 Chief Complaint: FEVER Stated Complaint: HIGH FEVER, BACK SIDE PAIN AND BLADDER PRESSURE History of Present Illness The patient is a 52 year old female who presents to the Emergency Room with complaints of a worsening urinary symptoms starting yesterday. The patient states that she recently just got over a bladder and kidney infection that she took Cipro for. She states that she now has a pain in her side and her back. She describes the pain as a pressure. The patient currently rates her pain as a 6/10 in severity. She notes that it is worse when she has to wear her back brace. She reports that she has the brace from a prior surgery. The patient notes that she takes Gabapentin 100 mg five times a day for the pain. She notes that she takes an Aleve twice a day as well. She states that she has been going very frequently and has some bladder incontinence. She reports that the bladder incontinence has been going on for 4-6 months. She notes that she does try exercises to help with it. The patient complains of chills and a fever. Pt denies LOC, headache, diaphoresis, visual changes, neck pain, chest pain, breathing difficulties, nausea, vomiting, melena, hematochezia, numbness, weakness, lymphadenopathy, rash, or other complaints. Source of History: patient Onset: yesterday Position: other (global) Symptom Intensity: 6/10 Quality: pressure Timing: worsening Associated Symptoms: + fevers, + chills, + abdominal pain, + back pain Review of Systems See HPI for pertinent positives and negatives. A total of ten systems were reviewed and were otherwise negative. Past Medical & Surgical Medical Problems: (1) Chronic Sinusitis Nos (2) Diverticulosis Colon (W/O Ment Of Hemorrhage) (3) Gastro-Esophageal Reflux Disease Without Esophagitis (4) Hypertension (5) Lumbar degenerative disc disease (6) Obesity, Nos (7) Obstructive Sleep Apnea (Adult) (Pediatric) (8) Paroxysmal supraventricular tachycardia (9) Sepsis Surgical Problems: (1) History of arthroscopic knee surgery (2) History of tubal ligation (3) Normal sigmoidoscopy Family History Diabetes mellitus FH: breast cancer FH: diabetes mellitus FH: ovarian cancer Hypertension Rectal cancer Social History Smoking Status: Never Smoker Alcohol Use: none Drug Use: none Marital Status: Housing Status: lives with family Occupation Status: employed Current/Historical Medications Scheduled Fluticasone Propionate (Nasal) (Flonase Allergy Relief), 2 SPRAYS ALON BID Furosemide (Furosemide), 2,040 MG PO QAM Gabapentin (Gabapentin), 100 MG PO TID Gabapentin (Neurontin), 200 MG PO QD@2000 Losartan Potassium (Cozaar), 100 MG PO QAM Naproxen (Aleve), 220 MG PO BID Allergies Coded Allergies: Caffeine (Verified Allergy, Severe, SVT, 02/22/17) Physical Exam Vital Signs Date Time Temp Pulse Resp B/P (MAP) Pulse Ox O2 Delivery O2 Flow Rate FiO2 11/29/17 00:38 79 20 149/84 98 Room Air 11/28/17 22:57 81 11/28/17 22:41 98 20 143/92 95 11/28/17 20:31 39.1 107 18 128/76 96 Room Air Physical Exam GENERAL: Awake, alert, well-appearing, in no distress HENT: Normocephalic, atraumatic. Oropharynx unremarkable. EYES: Normal conjunctiva. Sclera non-icteric. NECK: Supple. No nuchal rigidity. FROM. No JVD. RESPIRATORY: Clear to auscultation. CARDIAC: Regular rate, normal rhythm. Extremities warm and well perfused. Pulses equal. ABDOMEN: Soft, non-distended. No tenderness to palpation. No rebound or guarding. No masses. RECTAL: Deferred. MUSCULOSKELETAL: Chest examination reveals no tenderness. The back is symmetrical on inspection without obvious abnormality. There is mild CVA tenderness to palpation. No joint edema. LOWER EXTREMITIES: Calves are equal size bilaterally and non-tender. No edema. No discoloration. NEURO: Normal sensorium. No sensory or motor deficits noted. SKIN: No rash or jaundice noted. Medical Decision & Procedures ER Provider Diagnostic Interpretation: Radiology results as stated below per my review and radiologist interpretation: CT ABDOMEN & PELVIS With Contrast: Large calculus in the left upper pole renal calyces, measuring 2.5 x 1.6 x 2.3 cm. Small nonobstructive right lower pole renal calculi. No hydronephrosis or ureteral calculus. Recommended clinical correlation and correlation with urinalysis. No bowel obstruction, bowel wall thickening, ascites or free air. No evidence of acute appendicitis. Degenerative and postsurgical changes of the spine. No fracture. Incidental findings: Small left ovarian follicle. Small fat-containing umbilical hernia. Radiologist: Jane Jaramillo MD Study ready at 23:43 and initial results transmitted at 00:12. Laboratory Results 11/28/17 22:01 Red Blood Count 4.50, Mean Corpuscular Volume 85.3, Mean Corpuscular Hemoglobin 28.9, Mean Corpuscular Hemoglobin Concent 33.9, Mean Platelet Volume 9.7, Neutrophils (%) (Auto) 77.3, Lymphocytes (%) (Auto) 14.8, Monocytes (%) (Auto) 6.8, Eosinophils (%) (Auto) 0.5, Basophils (%) (Auto) 0.2, Neutrophils # (Auto) 10.83, Lymphocytes # (Auto) 2.08, Monocytes # (Auto) 0.95, Eosinophils # (Auto) 0.07, Basophils # (Auto) 0.03 11/28/17 22:01 Test 11/28/17 21:50 11/28/17 22:01 11/28/17 22:40 11/29/17 00:51 Urine Color YELLOW Urine Appearance CLOUDY (CLEAR) Urine pH 7.0 (4.5-7.5) Urine Specific [place] 1.013 (1.000-1.030) Urine Protein NEG (NEG) Urine Glucose (UA) NEG (NEG) Urine Ketones NEG (NEG) Urine Occult Blood TRACE (NEG) Urine Nitrite POS (NEG) Urine Bilirubin NEG (NEG) Urine Urobilinogen NEG (NEG) Urine Leukocyte Esterase LARGE (NEG) Urine WBC (Auto) >30 /hpf (0-5) Urine RBC (Auto) 0-4 /hpf (0-4) Urine Hyaline Casts (Auto) 1-5 /lpf (0-5) Urine Epithelial Cells (Auto) 10-20 /lpf (0-5) Urine Bacteria (Auto) 4+ (NEG) White Blood Count 14.01 K/uL (4.8-10.8) Red Blood Count 4.50 M/uL (4.2-5.4) Hemoglobin 13.0 g/dL (12.0-16.0) Hematocrit 38.4 % (37-47) Mean Corpuscular Volume 85.3 fL (80-100) Mean Corpuscular Hemoglobin 28.9 pg (25-34) Mean Corpuscular Hemoglobin Concent 33.9 g/dl (32-36) Platelet Count 260 K/uL (130-400) Mean Platelet Volume 9.7 fL (7.4-10.4) Neutrophils (%) (Auto) 77.3 % Lymphocytes (%) (Auto) 14.8 % Monocytes (%) (Auto) 6.8 % Eosinophils (%) (Auto) 0.5 % Basophils (%) (Auto) 0.2 % Neutrophils # (Auto) 10.83 K/uL (1.4-6.5) Lymphocytes # (Auto) 2.08 K/uL (1.2-3.4) Monocytes # (Auto) 0.95 K/uL (0.11-0.59) Eosinophils # (Auto) 0.07 K/uL (0-0.5) Basophils # (Auto) 0.03 K/uL (0-0.2) RDW Standard Deviation 45.0 fL (36.4-46.3) RDW Coefficient of Variation 14.5 % (11.5-14.5) Immature Granulocyte % (Auto) 0.4 % Immature Granulocyte # (Auto) 0.05 K/uL (0.00-0.02) Anion Gap 8.0 mmol/L (3-11) Est Creatinine Clear Calc Drug Dose 121.1 ml/min Estimated GFR () 92.7 Estimated GFR (Non- 79.9 BUN/Creatinine Ratio 17.3 (10-20) Calcium Level 9.3 mg/dl (8.5-10.1) Magnesium Level 2.1 mg/dl (1.8-2.4) Total Bilirubin 0.5 mg/dl (0.2-1) Direct Bilirubin < 0.1 mg/dl (0-0.2) Aspartate Amino Transf (AST/SGOT) 12 U/L (15-37) Alanine Aminotransferase (ALT/SGPT) 26 U/L (12-78) Alkaline Phosphatase 88 U/L (45-117) Total Protein 7.6 gm/dl (6.4-8.2) Albumin 3.5 gm/dl (3.4-5.0) Lipase 65 U/L (73-393) Influenza Type A Antigen Neg for Influ A (NEG) Influenza Type B Antigen Neg for Influ B (NEG) Lactic Acid Level 1.2 mmol/L (0.4-2.0) Laboratory results reviewed by me Medications Administered Medications (Trade) Dose Ordered Sig/Yasmine Route Start Time Stop Time Status Last Admin Dose Admin Sodium Chloride 1,000 ml @ 999 mls/hr Q1H1M STAT IV 11/28/17 21:25 11/28/17 22:25 DC 11/28/17 22:36 999 MLS/HR Acetaminophen (Tylenol Tab) 1,000 mg NOW STAT PO 11/28/17 21:25 11/28/17 21:26 DC 11/28/17 22:36 1,000 MG Gabapentin (Neurontin Cap) 200 mg NOW STAT PO 11/28/17 21:40 11/28/17 21:41 DC 11/28/17 22:36 200 MG Ceftriaxone Sodium (Rocephin Inj) 1 gm NOW STAT IV 11/28/17 23:37 11/28/17 23:38 DC 11/28/17 23:43 1 GM Ketorolac Tromethamine (Toradol Inj) 10 mg NOW STAT IV 11/29/17 00:32 11/29/17 00:33 DC 11/29/17 00:43 10 MG Piperacillin Sod/ Tazobactam Sod (Zosyn Iv) 4.5 gm NOW STAT IV 11/29/17 00:34 11/29/17 00:35 DC 11/29/17 00:43 4.5 GM ED Course 2125: Ordered Tylenol Tab 1000 mg PO, NSS 1000 ml @ 999 mls/hr IV. 3: The patient was evaluated in room C6. A complete history and physical exam was performed. 0: Ordered Gabapentin 200 mg PO. 2337: Ordered Rocephin Inj 1 gm IV. 2351: I reevaluated the patient and she is feeling well. 0026: I discussed the patient's case with Dr. Mckeon- Urology. He would like added coverage for Pseudomonas and recommended Zosyn. He would like her bought in and started on IV antibiotics. 0032: Ordered Toradol Inj 10 mg IV. 0034: Ordered Zosyn IV 4.5 gm IV. 0039: [facility] the [facility] The patient will be evaluated for further treatment and disposition. 0041: I reevaluated the patient and she is still feeling well. Medical Decision Prior records/ancillary studies reviewed. Triage Nursing notes reviewed and agree them. Additional history obtained from the family. The patient's history was concerning for flank and abdominal pain. Differential diagnosis: Etiologies such as UTI, renal colic, appendicitis, diverticulitis, mesenteric ischemia, aortic pathology, infections, inflammatory bowel disease, PUD, biliary pathology, as well as others were entertained. Physical examination findings: As above. ER treatment provided: Normal saline hydration Toradol Tylenol IV Rocephin The patient requested her evening gabapentin On reassessment the patient felt better. IV Zosyn Diagnostic interpretation by me: The labs revealed a mild leukocytosis on CBC. Chemistry panel unremarkable. Urinalysis revealed UTI. Imaging studies: CT of the abdomen and pelvis as above. Consultation: A consultation was placed with the urologist asset protection associate Dr. Mckeon. The case was discussed and diagnostics were reviewed. Given the stone and UTI he recommended additional antibiotic coverage to include that for pseudomonas. Zosyn was chosen. The patient will come into the hospitalist service and urology will be consulted. [facility] The patient was evaluated in the ER for further treatment. Medication Reconcilliation Current Medication List: was personally reviewed by me Blood Pressure Screening Patient's blood pressure: Elevated blood pressure Will be further monitored by the hospitalist. Consults Time Called: 002 Consulting Physician: Dr. Milton Garcia Returned Call: 002 I discussed the patient's case with Dr. Milton Garcia. He would like added coverage for Pseudomonas and recommended Zosyn. He would like her bought in and started on IV antibiotics. Additional Consults: Time Called: 003 Consulted Physician: [facility] Returned Call: 003 Additional Comments: Discussed the patient's case with Dr. Miryam Wright. The patient will be evaluated for further treatment and disposition. Impression Primary Impression: Pyelonephritis Scribe Attestation The scribe's documentation has been prepared under my direction and personally reviewed by me in its entirety. I confirm that the note above accurately reflects all work, treatment, procedures, and medical decision making performed by me. Departure Information Dispostion Being Evaluated By Hospitalist Referrals No Doctor, Assigned (PCP) Patient Instructions My [facility]
[2017-11-29] MEDS: CEFEPIME IV 2,000 MG in SYRINGE 7.5 ML IV SCH ×2 (05:42→18:27)
[2017-11-29 05:57] LABS: BASO % 0.2 %; BASO ABS # 0.02 K/uL (0-0.2); EOS % 0.6 %; EOS ABS # 0.06 K/uL (0-0.5); HEMOGLOBIN 11.4 g/dL (12.0-16.0); IG# 0.04 K/uL (0.00-0.02); LYMPH % 20.4 %; LYMPH ABS # 1.89 K/uL (1.2-3.4); MEAN CELL VOLUME 86.1 fL (80-100); MEAN CORPUSCULAR HEMOGLOBIN 28.9 pg (25-34); MEAN CORPUSCULAR HGB CONC 33.5 g/dl (32-36); MEAN PLATELET VOLUME 9.4 fL (7.4-10.4); MONO % 7.3 %; MONO ABS # 0.68 K/uL (0.11-0.59); NEUT % 71.1 %; NEUT ABS # 6.58 K/uL (1.4-6.5); PLATELET COUNT 207 K/uL (130-400); RED CELL DISTRIBUTION WIDTH CV 14.4 % (11.5-14.5); RED CELL DISTRIBUTION WIDTH SD 45.4 fL (36.4-46.3); WHITE BLOOD COUNT 9.27 K/uL (4.8-10.8)
[2017-11-29 06:11] LABS: INR 1.1 (0.9-1.1)
[2017-11-29 06:14] LABS: HEMOGLOBIN A1C 5.8 % (4.5-5.6)
[2017-11-29 06:28] LABS: CALCIUM 8.4 mg/dl (8.5-10.1); CREATININE 0.76 mg/dl (0.60-1.20); POTASSIUM 3.3 mmol/L (3.5-5.1)
[2017-11-29] MEDS ORDERED: POTASSIUM CHLORIDE 10 MEQ TABCR PO STA (06:28)
[2017-11-29] MEDS: GABAPENTIN 100 MG CAP PO SCH ×4 (07:50→20:46)
[2017-11-29] MEDS: LOSARTAN POTASSIUM 50 MG TAB PO SCH (07:50)
[2017-11-29] MEDS: ENOXAPARIN 40 MG/0.4 ML SYR SQ SCH (07:58)
--- NOTE | 2017-11-29 08:02 | DIAGNOSTIC IMAGING REPORT ---
ABD/PELVIS IV CONTRAST ONLY CLINICAL HISTORY: 52 years-old Female presenting with bilat flank pain, temp 39, ? pyelo. TECHNIQUE: Multidetector CT of the abdomen and pelvis was performed after the administration of intravenous contrast. IV contrast: 115 mL of Optiray 320. A dose lowering technique was used consistent with the principles of ALARA (as low as reasonably achievable). COMPARISON: None. CT DOSE (mGy.cm): The estimated cumulative dose is 1803.77 mGy.cm. 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 Lung bases: Minimal basilar opacities, likely atelectasis. Normal heart size. No pericardial or pleural effusion. Liver: Normal morphology. Suggestion of hepatic steatosis. No focal lesion. Patent hepatic vasculature. Biliary: No intrahepatic or extrahepatic biliary ductal dilatation. Normal gallbladder. Pancreas: Normal. Spleen: Normal. Adrenal glands: Normal. Kidneys and ureters: 2 nonobstructing calculi noted at the lower pole the right kidney, the larger measuring 3 mm. No right hydronephrosis. Right ureter normal. Large nonobstructing 25 mm calculus in the upper pole to interpolar region of the left kidney. Mild left perinephric fat stranding. Slight hypoperfusion of the left kidney may be present although the patient's body habitus limits evaluation. No left hydronephrosis. Mild left urothelial thickening suggested. Left ureter otherwise normal. No ureteral calculi or significant periureteral fat stranding. No renal abscess. Bladder: Normal. No bladder calculi. Pelvic organs: Lobular uterine fundus could suggest the presence of fibroids. Ovaries normal. Bowel: Mild stool burden throughout normal caliber colon. No bowel obstruction. The appendix is normal. Peritoneal cavity: No free fluid or intraperitoneal gas. Lymph nodes: Scattered subcentimeter prominent retroperitoneal lymph nodes primarily in the left periaortic region the level of the left renal hilum. Vasculature: Aorta and IVC patent and normal in caliber. Abdominal wall: Fat-containing ventral hernia as well as a fat-containing umbilical hernia. Musculoskeletal: Posterior lumbar fusion hardware with laminectomy changes. Degenerative changes spine. IMPRESSION: 1. Left perinephric fat stranding with subtle urothelial thickening and hypoperfusion of the left kidney in the absence of hydronephrosis. This raises concern for left pyelonephritis. No renal abscess. No CT evidence of cystitis. Correlate with urinalysis. Differential considerations include recently passed calculus, which is considered less likely given the absence of periureteral inflammatory change in the patient's given history of fever. Electronically signed by: Nish Snell M.D. 11/29/2017 8:01 AM Dictated Date/Time: 11/29/2017 7:08 AM
[2017-11-29] MEDS ORDERED: CEFEPIME CONSULT ACTIVE PRN (09:00)
--- NOTE | 2017-11-29 09:24 | Urology Consultation ---
History General Date of Service: Nov 29, 2017. Chief Complaint: left flank pain, fever Primary Care Physician: Alex Shepherd M.D. Pt seen a urologist before?: No History of Present Illness 52 yo female presents to [facility] with c/o left flank pain and fevers. She also reports bladder pressure. Per the pt, she was tx for a UTI several weeks ago, but wasn't sure if it ever resolved. CT on admission showing b/l nephrolithiasis with a large non-obstructing 25mm left staghorn calculus with suspected pyelonephritis. CT reviewed with Dr. Mckeon this morning. She reports she was told she had a small stone in her left kidney by her PCP several months ago, but has no previous hx of stones. White count has normalized since admission. Cr is 0.76. She is currently afebrile. Blood and urine cultures pending. Imaging Imaging: CT Laboratory Last 24 Hours Test 11/28/17 21:50 11/28/17 22:01 11/28/17 22:40 11/29/17 00:51 Urine Color YELLOW Urine Appearance CLOUDY Urine pH 7.0 Urine Specific [place] 1.013 Urine Protein NEG Urine Glucose (UA) NEG Urine Ketones NEG Urine Occult Blood TRACE Urine Nitrite POS Urine Bilirubin NEG Urine Urobilinogen NEG Urine Leukocyte Esterase LARGE Urine WBC (Auto) >30 /hpf Urine RBC (Auto) 0-4 /hpf Urine Hyaline Casts (Auto) 1-5 /lpf Urine Epithelial Cells (Auto) 10-20 /lpf Urine Bacteria (Auto) 4+ White Blood Count 14.01 K/uL Red Blood Count 4.50 M/uL Hemoglobin 13.0 g/dL Hematocrit 38.4 % Mean Corpuscular Volume 85.3 fL Mean Corpuscular Hemoglobin 28.9 pg Mean Corpuscular Hemoglobin Concent 33.9 g/dl Platelet Count 260 K/uL Mean Platelet Volume 9.7 fL Neutrophils (%) (Auto) 77.3 % Lymphocytes (%) (Auto) 14.8 % Monocytes (%) (Auto) 6.8 % Eosinophils (%) (Auto) 0.5 % Basophils (%) (Auto) 0.2 % Neutrophils # (Auto) 10.83 K/uL Lymphocytes # (Auto) 2.08 K/uL Monocytes # (Auto) 0.95 K/uL Eosinophils # (Auto) 0.07 K/uL Basophils # (Auto) 0.03 K/uL RDW Standard Deviation 45.0 fL RDW Coefficient of Variation 14.5 % Immature Granulocyte % (Auto) 0.4 % Immature Granulocyte # (Auto) 0.05 K/uL Sodium Level 135 mmol/L Potassium Level 3.7 mmol/L Chloride Level 103 mmol/L Carbon Dioxide Level 24 mmol/L Anion Gap 8.0 mmol/L Blood Urea Nitrogen 14 mg/dl Creatinine 0.83 mg/dl Est Creatinine Clear Calc Drug Dose 121.1 ml/min Estimated GFR () 92.7 Estimated GFR (Non- 79.9 BUN/Creatinine Ratio 17.3 Random Glucose 157 mg/dl Estimated Average Glucose 120 mg/dl Hemoglobin A1c 5.8 % Calcium Level 9.3 mg/dl Magnesium Level 2.1 mg/dl Total Bilirubin 0.5 mg/dl Direct Bilirubin < 0.1 mg/dl Aspartate Amino Transf (AST/SGOT) 12 U/L Alanine Aminotransferase (ALT/SGPT) 26 U/L Alkaline Phosphatase 88 U/L Total Protein 7.6 gm/dl Albumin 3.5 gm/dl Lipase 65 U/L Influenza Type A Antigen Neg for Influ A Influenza Type B Antigen Neg for Influ B Lactic Acid Level 1.2 mmol/L Test 11/29/17 05:18 White Blood Count 9.27 K/uL Red Blood Count 3.95 M/uL Hemoglobin 11.4 g/dL Hematocrit 34.0 % Mean Corpuscular Volume 86.1 fL Mean Corpuscular Hemoglobin 28.9 pg Mean Corpuscular Hemoglobin Concent 33.5 g/dl Platelet Count 207 K/uL Mean Platelet Volume 9.4 fL Neutrophils (%) (Auto) 71.1 % Lymphocytes (%) (Auto) 20.4 % Monocytes (%) (Auto) 7.3 % Eosinophils (%) (Auto) 0.6 % Basophils (%) (Auto) 0.2 % Neutrophils # (Auto) 6.58 K/uL Lymphocytes # (Auto) 1.89 K/uL Monocytes # (Auto) 0.68 K/uL Eosinophils # (Auto) 0.06 K/uL Basophils # (Auto) 0.02 K/uL RDW Standard Deviation 45.4 fL RDW Coefficient of Variation 14.4 % Immature Granulocyte % (Auto) 0.4 % Immature Granulocyte # (Auto) 0.04 K/uL Prothrombin Time 11.2 SECONDS Prothromb Time International Ratio 1.1 Sodium Level 137 mmol/L Potassium Level 3.3 mmol/L Chloride Level 105 mmol/L Carbon Dioxide Level 27 mmol/L Anion Gap 5.0 mmol/L Blood Urea Nitrogen 13 mg/dl Creatinine 0.76 mg/dl Est Creatinine Clear Calc Drug Dose 133.3 ml/min Estimated GFR () 103.1 Estimated GFR (Non- 88.9 BUN/Creatinine Ratio 16.7 Random Glucose 116 mg/dl Calcium Level 8.4 mg/dl Magnesium Level 2.3 mg/dl Problem List Medical Problems: (1) Blood culture positive for microorganism Status: Acute (2) Chest wall pain Status: Acute (3) Pyelonephritis Status: Acute (4) Pyelonephritis Status: Acute (5) Pyelonephritis Status: Acute (6) Right calf pain Status: Acute (7) UTI (urinary tract infection) Status: Acute Past History hypertension, urinary tract infection (recurrent), other (PVST s/p ablation, sleep apnea on CPAP, chronic back pain ) Past Surgical History: orthopedic surgery (knee surgery), spinal surgery, other (gynecology procedure) Family History Diabetes mellitus FH: breast cancer FH: diabetes mellitus FH: ovarian cancer Hypertension Rectal cancer Social History Hx Tobacco Use In Past Year?: No Smoking: non-smoker Alcohol: no current use Marital status: Housing status: lives with family Occupation status: disabled History of MDRO No Allergies Coded Allergies: Caffeine (Verified Allergy, Severe, SVT, 02/22/17) Medications Home Medications: Home Meds and Scripts Medications Dose Route/Sig Max Daily Dose Days Date Category Aleve (Naproxen) 220 Mg Tab 220 Mg PO BID 11/28/17 Reported Flonase Allergy Relief (Fluticasone Propionate (Nasal)) 50 Mcg/Act Spr 2 Sprays ALON BID 11/28/17 Reported Neurontin (Gabapentin) 100 Mg Cap 200 Mg PO QD@199911/28/17 Reported Gabapentin 100 Mg Cap 100 Mg PO TID 11/28/17 Reported Furosemide 20 Mg Tab 2,040 Mg PO QAM 02/20/17 Reported Cozaar (Losartan Potassium) 100 Mg Tab 100 Mg PO QAM 02/20/17 Reported Inpatient Medications: Current Inpatient Medications Medications (Trade) Dose Ordered Sig/Yasmine Route Start Time Stop Time Status Last Admin Dose Admin Ioversol (Optiray 320) 100 ml UD PRN IV 11/28/17 21:45 12/02/17 21:44 Enoxaparin Sodium (Lovenox Inj) 40 mg Q24H SQ 11/29/17 09:00 12/29/17 08:59 11/29/17 07:58 40 MG Acetaminophen (Tylenol Tab) 650 mg Q4H PRN PO 11/29/17 01:30 12/29/17 01:29 Tramadol HCl (Ultram Tab) not relieved ... Q6H PRN PO 11/29/17 01:30 12/29/17 01:29 Prochlorperazine Edisylate 5 mg/ Syringe 5 ml @ 5 mls/min Q6H PRN IV 11/29/17 01:30 12/29/17 01:29 Morphine Sulfate (MoRPHine SULFATE INJ) 4 mg Q3H PRN IV 11/29/17 01:30 12/13/17 01:29 Lorazepam (Ativan Inj) 0.5 mg Q4H PRN IV 11/29/17 01:30 12/29/17 01:29 Cefepime HCl (Consult) 1 ea UD PRN N/A 11/29/17 09:00 12/29/17 08:59 Gabapentin (Neurontin Cap) 100 mg TIDM PO 11/29/17 08:00 12/29/17 07:59 11/29/17 07:50 100 MG Gabapentin (Neurontin Cap) 200 mg QD@2000 PO 11/29/17 20:00 12/29/17 19:59 Losartan Potassium (coZAAR TAB) 100 mg QAM PO 11/29/17 09:00 12/29/17 08:59 11/29/17 07:50 100 MG Potassium Chloride/Sodium Chloride 1,000 ml @ 100 mls/hr Q10H ONCE IV 11/29/17 01:30 11/29/17 11:29 11/29/17 04:14 100 MLS/HR Lorazepam 0.5 mg/ Syringe 1 ml @ 1 mls/min Q4H PRN IV 11/29/17 02:00 12/29/17 01:59 Cefepime HCl 2000 mg/Syringe 20 ml @ 5 mls/min Q12H IV 11/29/17 06:00 12/09/17 05:59 11/29/17 05:42 5 MLS/MIN Review of Systems Review of Systems Constitutional: + chills, No fever Eyes: No double vision Neurological: No dizzy Endocrine: + excessive thirst Gastrointestinal: + abdominal pain (left flank and suprapubic pain ), + nausea , No vomiting Cardiovascular: No chest pain Respiratory: No shortness of breath Skin: No rash Musculoskeletal: + back pain (chronic back pain) Female : + kidney stones, No painful urination, No blood in urine Physical Exam Vital Signs: Vital Signs Past 12 Hours Date Time Temp Pulse Resp B/P (MAP) Pulse Ox O2 Delivery O2 Flow Rate FiO2 11/29/17 07:28 36.9 68 18 128/76 (93) 98 Room Air 11/29/17 03:14 36.8 77 18 150/82 96 Room Air 11/29/17 01:50 37.4 81 20 140/76 99 11/29/17 00:38 79 20 149/84 98 Room Air 11/28/17 22:57 81 11/28/17 22:41 98 20 143/92 95 Physical Exam: General Appearance: no apparent distress, + obese Eyes: bilateral eyes normal inspection ENT: hearing grossly normal Neck: no JVD Respiratory/Chest: no respiratory distress, no accessory muscle use Cardiovascular: no JVD Extremities: normal inspection Neurologic/Psychiatric: alert, normal mood/affect, oriented x 3 Skin: normal color Assessment & Plan Assessment & Plan A/P: Large left staghorn calculus, pyelonephritis AFVSS. Continue IV abx pending culture sensitivities. Monitor for clinical improvement. If the pt were to decompensate, would need transferred for urgent PCN placement. If clinically improving, recommend 2 weeks of oral abx, and will plan for outpatient referral to either [place] or [place] for PCN and possible PCNL of her large left staghorn which is likely a source for infection. The pt will also eventually need metabolic stone evaluation in the future. Can arrange with nephrology. Plan of care discussed with Dr. Tan and Dr. Mckeon this morning. Thanks for the consult. Will continue to follow along with primary service.
--- NOTE | 2017-11-29 20:15 | Progress Note ---
Medicine Progress Note Date & Time of Visit: Nov 29, 2017 at 19:20 . Subjective CC: Follow-up visit for pyelonephritis. HPI: Admitted last night with left pyelonephritis. Persisted fever and chills. Left flank pain. No dysuria or hematuria. ROS: General- as noted above in HPI Resp- no cough; no shortness of breath Cardiac- no chest pain, no edema GI- 1 loose stool today; no nausea, no vomiting - as noted above in HPI Musculoskeletal- chronic back pain . Objective Last 8 Hrs Date Time Temp Pulse Resp B/P (MAP) Pulse Ox O2 Delivery O2 Flow Rate FiO2 11/29/17 15:41 37.6 11/29/17 15:41 Room Air 11/29/17 14:48 37.6 81 22 137/61 (86) 99 Room Air Physical Exam: General- lying in bedno distress Lungs- clear to auscultation; no respiratory distress Cardiovascular- RRR; no gallop; no JVD; no pretibial edema Abdomen- + bowel sounds, soft, nontender Back- mild left CVAT Extremities- no cyanosis; no calf tenderness Neuro- alert, oriented Skin- warm & dry . Laboratory Results: Last 24 Hours Test 11/28/17 21:50 11/28/17 22:01 11/28/17 22:40 11/29/17 00:51 Urine Color YELLOW Urine Appearance CLOUDY Urine pH 7.0 Urine Specific [place] 1.013 Urine Protein NEG Urine Glucose (UA) NEG Urine Ketones NEG Urine Occult Blood TRACE Urine Nitrite POS Urine Bilirubin NEG Urine Urobilinogen NEG Urine Leukocyte Esterase LARGE Urine WBC (Auto) >30 /hpf Urine RBC (Auto) 0-4 /hpf Urine Hyaline Casts (Auto) 1-5 /lpf Urine Epithelial Cells (Auto) 10-20 /lpf Urine Bacteria (Auto) 4+ White Blood Count 14.01 K/uL Red Blood Count 4.50 M/uL Hemoglobin 13.0 g/dL Hematocrit 38.4 % Mean Corpuscular Volume 85.3 fL Mean Corpuscular Hemoglobin 28.9 pg Mean Corpuscular Hemoglobin Concent 33.9 g/dl Platelet Count 260 K/uL Mean Platelet Volume 9.7 fL Neutrophils (%) (Auto) 77.3 % Lymphocytes (%) (Auto) 14.8 % Monocytes (%) (Auto) 6.8 % Eosinophils (%) (Auto) 0.5 % Basophils (%) (Auto) 0.2 % Neutrophils # (Auto) 10.83 K/uL Lymphocytes # (Auto) 2.08 K/uL Monocytes # (Auto) 0.95 K/uL Eosinophils # (Auto) 0.07 K/uL Basophils # (Auto) 0.03 K/uL RDW Standard Deviation 45.0 fL RDW Coefficient of Variation 14.5 % Immature Granulocyte % (Auto) 0.4 % Immature Granulocyte # (Auto) 0.05 K/uL Sodium Level 135 mmol/L Potassium Level 3.7 mmol/L Chloride Level 103 mmol/L Carbon Dioxide Level 24 mmol/L Anion Gap 8.0 mmol/L Blood Urea Nitrogen 14 mg/dl Creatinine 0.83 mg/dl Est Creatinine Clear Calc Drug Dose 121.1 ml/min Estimated GFR () 92.7 Estimated GFR (Non- 79.9 BUN/Creatinine Ratio 17.3 Random Glucose 157 mg/dl Estimated Average Glucose 120 mg/dl Hemoglobin A1c 5.8 % Calcium Level 9.3 mg/dl Magnesium Level 2.1 mg/dl Total Bilirubin 0.5 mg/dl Direct Bilirubin < 0.1 mg/dl Aspartate Amino Transf (AST/SGOT) 12 U/L Alanine Aminotransferase (ALT/SGPT) 26 U/L Alkaline Phosphatase 88 U/L Total Protein 7.6 gm/dl Albumin 3.5 gm/dl Lipase 65 U/L Influenza Type A Antigen Neg for Influ A Influenza Type B Antigen Neg for Influ B Lactic Acid Level 1.2 mmol/L Test 11/29/17 05:18 White Blood Count 9.27 K/uL Red Blood Count 3.95 M/uL Hemoglobin 11.4 g/dL Hematocrit 34.0 % Mean Corpuscular Volume 86.1 fL Mean Corpuscular Hemoglobin 28.9 pg Mean Corpuscular Hemoglobin Concent 33.5 g/dl Platelet Count 207 K/uL Mean Platelet Volume 9.4 fL Neutrophils (%) (Auto) 71.1 % Lymphocytes (%) (Auto) 20.4 % Monocytes (%) (Auto) 7.3 % Eosinophils (%) (Auto) 0.6 % Basophils (%) (Auto) 0.2 % Neutrophils # (Auto) 6.58 K/uL Lymphocytes # (Auto) 1.89 K/uL Monocytes # (Auto) 0.68 K/uL Eosinophils # (Auto) 0.06 K/uL Basophils # (Auto) 0.02 K/uL RDW Standard Deviation 45.4 fL RDW Coefficient of Variation 14.4 % Immature Granulocyte % (Auto) 0.4 % Immature Granulocyte # (Auto) 0.04 K/uL Prothrombin Time 11.2 SECONDS Prothromb Time International Ratio 1.1 Sodium Level 137 mmol/L Potassium Level 3.3 mmol/L Chloride Level 105 mmol/L Carbon Dioxide Level 27 mmol/L Anion Gap 5.0 mmol/L Blood Urea Nitrogen 13 mg/dl Creatinine 0.76 mg/dl Est Creatinine Clear Calc Drug Dose 133.3 ml/min Estimated GFR () 103.1 Estimated GFR (Non- 88.9 BUN/Creatinine Ratio 16.7 Random Glucose 116 mg/dl Calcium Level 8.4 mg/dl Magnesium Level 2.3 mg/dl Date/Time Source Procedure Growth Status 11/28/17 22:11 Blood Blood Culture Pending Received 11/28/17 22:01 Blood Blood Culture Pending Received 11/28/17 21:50 Urine , Clean Catch Urine Culture Pending Received Assessment & Plan PYELONEPHRITIS Presented to ED with fever and left flank pain. WBC 14,010. UA showed nitrites, leukocyte esterase, WBC's, bacteria. CT demonstrated left pyelonephritis and nonobstructing nephrolithiasis. Blood and urine cultures obtained. Receiving cefepime pending culture results. SEPSIS Met criteria for sepsis per 2001 definition and current CMS guidelines (fever, tachycardia, leukocytosis). Likely source = urinary tract. Hemodynamically stable with systolic BP's > 90. WBC 14,010. Lactate 1.2. Blood and urine cultures obtained. Received broad-spectrum antibiotic coverage with cefepime. Ongoing management of UTI as discussed above. NEPHROLITHIASIS CT demonstrated 25 mm calculus left upper kidney and 2 small nonobstructing calculi right kidney. Urology consulted. Elective percutaneous nephrostomy recommended. HISTORY PSVT S/P ablation. HYPERTENSION Continue losartan. SLEEP APNEA Continue CPAP. VTE PROPHYLAXIS SQ enoxaparin. Ambulate. DISPOSITION Expected discharge to home. Family Medicine follow-up with Dr. Shepherd. Follow-up with [facility]. . Current Inpatient Medications: Current Inpatient Medications Medications (Trade) Dose Ordered Sig/Yasmine Route Start Time Stop Time Status Last Admin Dose Admin Ioversol (Optiray 320) 100 ml UD PRN IV 11/28/17 21:45 12/02/17 21:44 Enoxaparin Sodium (Lovenox Inj) 40 mg Q24H SQ 11/29/17 09:00 12/29/17 08:59 11/29/17 07:58 40 MG Acetaminophen (Tylenol Tab) 650 mg Q4H PRN PO 11/29/17 01:30 12/29/17 01:29 11/29/17 14:53 650 MG Tramadol HCl (Ultram Tab) not relieved ... Q6H PRN PO 11/29/17 01:30 12/29/17 01:29 Prochlorperazine Edisylate 5 mg/ Syringe 5 ml @ 5 mls/min Q6H PRN IV 11/29/17 01:30 12/29/17 01:29 Morphine Sulfate (MoRPHine SULFATE INJ) 4 mg Q3H PRN IV 11/29/17 01:30 12/13/17 01:29 Lorazepam (Ativan Inj) 0.5 mg Q4H PRN IV 11/29/17 01:30 12/29/17 01:29 Cefepime HCl (Consult) 1 ea UD PRN N/A 11/29/17 09:00 12/29/17 08:59 Gabapentin (Neurontin Cap) 100 mg TIDM PO 11/29/17 08:00 12/29/17 07:59 11/29/17 17:05 100 MG Gabapentin (Neurontin Cap) 200 mg QD@2000 PO 11/29/17 20:00 12/29/17 19:59 Losartan Potassium (coZAAR TAB) 100 mg QAM PO 11/29/17 09:00 12/29/17 08:59 11/29/17 07:50 100 MG Lorazepam 0.5 mg/ Syringe 1 ml @ 1 mls/min Q4H PRN IV 11/29/17 02:00 12/29/17 01:59 Cefepime HCl 2000 mg/Syringe 20 ml @ 5 mls/min Q12H IV 11/29/17 06:00 12/09/17 05:59 11/29/17 18:27 5 MLS/MIN
[2017-11-30 02:30] VITALS: TEMP 37
[2017-11-30] MEDS: CEFEPIME IV 2,000 MG in SYRINGE 7.5 ML IV SCH ×2 (05:35→17:38)
[2017-11-30 07:03] VITALS: BP 158/78; PULSE 72; TEMP 36.9; O2SAT 95
[2017-11-30 07:18] LABS: HEMATOCRIT 34.3 % (37-47); HEMOGLOBIN 11.4 g/dL (12.0-16.0); MEAN CELL VOLUME 86.2 fL (80-100); MEAN CORPUSCULAR HEMOGLOBIN 28.6 pg (25-34); MEAN CORPUSCULAR HGB CONC 33.2 g/dl (32-36); MEAN PLATELET VOLUME 9.5 fL (7.4-10.4); PLATELET COUNT 207 K/uL (130-400); RED CELL DISTRIBUTION WIDTH CV 14.4 % (11.5-14.5); RED CELL DISTRIBUTION WIDTH SD 45.2 fL (36.4-46.3); WHITE BLOOD COUNT 7.78 K/uL (4.8-10.8)
[2017-11-30] MEDS: GABAPENTIN 100 MG CAP PO SCH ×4 (07:48→19:48)
[2017-11-30] MEDS: ENOXAPARIN 40 MG/0.4 ML SYR SQ SCH (07:48)
[2017-11-30] MEDS: LOSARTAN POTASSIUM 50 MG TAB PO SCH (07:48)
[2017-11-30 07:52] LABS: CALCIUM 8.8 mg/dl (8.5-10.1); CREATININE 0.64 mg/dl (0.60-1.20); POTASSIUM 3.8 mmol/L (3.5-5.1)
--- NOTE | 2017-11-30 08:32 | Progress Note ---
Subjective Date of Service: Nov 30, 2017. (Kari Barraza CRNP) Subjective Pt evaluation today including: conversation w/ patient, chart review, lab review Voiding: no voiding problems 52 yo female with pyelonephritis and left staghorn calculus. Pt reports left back pain with lying in bed, but otherwise feels OK this morning. Nausea has improved. Denies dysuria or hematuria. UC&S preliminarily growing gram negative bacilli. She has remained afebrile overnight. (Kari Barraza CRNP) Problem List Medical Problems: (1) Blood culture positive for microorganism Status: Acute (2) Chest wall pain Status: Acute (3) Pyelonephritis Status: Acute (4) Pyelonephritis Status: Acute (5) Pyelonephritis Status: Acute (6) Right calf pain Status: Acute (7) UTI (urinary tract infection) Status: Acute (Kari Barraza CRNP) Review of Systems Constitutional: No fever, No chills Respiratory: No shortness of breath Cardiac: No chest pain Abdomen: No pain, No nausea, No vomiting Musculoskeletal: + problem reported (back pain ) Female : No dysuria, No hematuria Heme: No abnormal bleeding/bruising (Kari Barraza CRNP) Objective Vital Signs Date Time Temp Pulse Resp B/P (MAP) Pulse Ox O2 Delivery O2 Flow Rate FiO2 11/30/17 07:03 36.9 72 20 158/78 (104) 95 Room Air 11/30/17 02:30 37.0 11/30/17 00:00 Room Air CPAP 11/29/17 23:38 37.5 85 17 114/64 (81) 94 CPAP 11/29/17 20:46 37.0 11/29/17 20:00 Room Air CPAP 11/29/17 15:41 37.6 11/29/17 15:41 Room Air 11/29/17 14:48 37.6 81 22 137/61 (86) 99 Room Air (Kari Barraza CRNP) Physical Exam General Appearance: no apparent distress, + obese Eyes: normal inspection ENT: hearing grossly normal Neck: no JVD Respiratory/Chest: no respiratory distress, no accessory muscle use Cardiovascular: no JVD Extremities: normal inspection Neurologic/Psychiatric: alert, normal mood/affect, oriented x 3 Skin: normal color (Kari Barraza CRNP) Laboratory Results Last 24 Hours Test 11/30/17 06:46 White Blood Count 7.78 K/uL Red Blood Count 3.98 M/uL Hemoglobin 11.4 g/dL Hematocrit 34.3 % Mean Corpuscular Volume 86.2 fL Mean Corpuscular Hemoglobin 28.6 pg Mean Corpuscular Hemoglobin Concent 33.2 g/dl RDW Standard Deviation 45.2 fL RDW Coefficient of Variation 14.4 % Platelet Count 207 K/uL Mean Platelet Volume 9.5 fL Sodium Level 137 mmol/L Potassium Level 3.8 mmol/L Chloride Level 106 mmol/L Carbon Dioxide Level 25 mmol/L Anion Gap 6.0 mmol/L Blood Urea Nitrogen 7 mg/dl Creatinine 0.64 mg/dl Est Creatinine Clear Calc Drug Dose 158.3 ml/min Estimated GFR () 117.3 Estimated GFR (Non- 101.2 BUN/Creatinine Ratio 11.6 Random Glucose 111 mg/dl Calcium Level 8.8 mg/dl (Kari Barraza CRNP) Assessment and Plan A/P: Left staghorn calculus, pyelonephritis Continue IV abx pending culture sensitivities. Would then transition to 2 weeks of PO abx prior to d/c home. In the process of arranging for PCN placement at [facility] in the next week or so. [facility] urology currently has records to review, and will call to schedule. Once staghorn has been managed at [facility], we will gladly f/u with Mrs. Vera for future stone management of her right renal stones and to assist with metabolic stone eval if desired. Will continue to follow along with primary service. (Kari Barraza CRNP)
[2017-11-30 16:11] VITALS: BP 114/61; PULSE 75; TEMP 36.8; O2SAT 98
--- NOTE | 2017-11-30 20:53 | Progress Note ---
Medicine Progress Note Date & Time of Visit: Nov 30, 2017 at 14:45 . Subjective CC: Follow-up visit for pyelonephritis. HPI: Better. No fever or chills. Mild left flank pain. No dysuria or hematuria. ROS: General- as noted above in HPI Resp- no cough; no shortness of breath Cardiac- no chest pain, no edema GI- no diarrhea; no nausea, no vomiting - as noted above in HPI Musculoskeletal- chronic back pain . Objective Last 8 Hrs Date Time Temp Pulse Resp B/P (MAP) Pulse Ox O2 Delivery O2 Flow Rate FiO2 11/30/17 16:11 36.8 75 18 114/61 (78) 98 Room Air 11/30/17 15:30 Room Air CPAP Physical Exam: General- sitting on side of bed; no distress Lungs- clear to auscultation; no respiratory distress Cardiovascular- RRR; no gallop; no JVD; no pretibial edema Abdomen- + bowel sounds, soft, nontender Back- mild left CVAT Extremities- no cyanosis; no calf tenderness Neuro- alert, oriented Skin- warm & dry . Laboratory Results: Last 24 Hours Test 11/30/17 06:46 White Blood Count 7.78 K/uL Red Blood Count 3.98 M/uL Hemoglobin 11.4 g/dL Hematocrit 34.3 % Mean Corpuscular Volume 86.2 fL Mean Corpuscular Hemoglobin 28.6 pg Mean Corpuscular Hemoglobin Concent 33.2 g/dl RDW Standard Deviation 45.2 fL RDW Coefficient of Variation 14.4 % Platelet Count 207 K/uL Mean Platelet Volume 9.5 fL Sodium Level 137 mmol/L Potassium Level 3.8 mmol/L Chloride Level 106 mmol/L Carbon Dioxide Level 25 mmol/L Anion Gap 6.0 mmol/L Blood Urea Nitrogen 7 mg/dl Creatinine 0.64 mg/dl Est Creatinine Clear Calc Drug Dose 158.3 ml/min Estimated GFR () 117.3 Estimated GFR (Non- 101.2 BUN/Creatinine Ratio 11.6 Random Glucose 111 mg/dl Calcium Level 8.8 mg/dl Assessment & Plan PYELONEPHRITIS Presented to ED with fever and left flank pain. WBC 14,010. UA showed nitrites, leukocyte esterase, WBC's, bacteria. CT demonstrated left pyelonephritis and nonobstructing nephrolithiasis. Blood and urine cultures obtained. Urine culture growing gram neg bacilli. Receiving cefepime pending culture results. SEPSIS Met criteria for sepsis per 2001 definition and current CMS guidelines (fever, tachycardia, leukocytosis). Likely source = urinary tract. Hemodynamically stable with systolic BP's > 90. WBC 14,010. Lactate 1.2. Blood and urine cultures obtained. Received broad-spectrum antibiotic coverage with cefepime. Ongoing management of UTI as discussed above. NEPHROLITHIASIS CT demonstrated 25 mm calculus left upper kidney and 2 small nonobstructing calculi right kidney. Urology consulted. Elective percutaneous nephrostomy recommended. HISTORY PSVT S/P ablation. HYPERTENSION Continue losartan. SLEEP APNEA Continue CPAP. VTE PROPHYLAXIS SQ enoxaparin. Ambulate. DISPOSITION Expected discharge to home. Family Medicine follow-up with Dr. Shepherd. Follow-up with [facility]. . Current Inpatient Medications: Current Inpatient Medications Medications (Trade) Dose Ordered Sig/Yasmine Route Start Time Stop Time Status Last Admin Dose Admin Ioversol (Optiray 320) 100 ml UD PRN IV 11/28/17 21:45 12/02/17 21:44 Enoxaparin Sodium (Lovenox Inj) 40 mg Q24H SQ 11/29/17 09:00 12/29/17 08:59 11/30/17 07:48 40 MG Acetaminophen (Tylenol Tab) 650 mg Q4H PRN PO 11/29/17 01:30 12/29/17 01:29 11/29/17 14:53 650 MG Tramadol HCl (Ultram Tab) not relieved ... Q6H PRN PO 11/29/17 01:30 12/29/17 01:29 Prochlorperazine Edisylate 5 mg/ Syringe 5 ml @ 5 mls/min Q6H PRN IV 11/29/17 01:30 12/29/17 01:29 Morphine Sulfate (MoRPHine SULFATE INJ) 4 mg Q3H PRN IV 11/29/17 01:30 12/13/17 01:29 Lorazepam (Ativan Inj) 0.5 mg Q4H PRN IV 11/29/17 01:30 12/29/17 01:29 Cefepime HCl (Consult) 1 ea UD PRN N/A 11/29/17 09:00 12/29/17 08:59 Gabapentin (Neurontin Cap) 100 mg TIDM PO 11/29/17 08:00 12/29/17 07:59 11/30/17 16:43 100 MG Gabapentin (Neurontin Cap) 200 mg QD@2000 PO 11/29/17 20:00 12/29/17 19:59 11/30/17 19:48 200 MG Losartan Potassium (coZAAR TAB) 100 mg QAM PO 11/29/17 09:00 12/29/17 08:59 11/30/17 07:48 100 MG Lorazepam 0.5 mg/ Syringe 1 ml @ 1 mls/min Q4H PRN IV 11/29/17 02:00 12/29/17 01:59 Cefepime HCl 2000 mg/Syringe 20 ml @ 5 mls/min Q12H IV 11/29/17 06:00 12/09/17 05:59 11/30/17 17:38 5 MLS/MIN
[2017-11-30 23:35] VITALS: BP 123/67; PULSE 67; TEMP 37.2; O2SAT 97
[2017-12-01 05:33] LABS: CALCIUM 8.8 mg/dl (8.5-10.1); CREATININE 0.69 mg/dl (0.60-1.20); POTASSIUM 3.7 mmol/L (3.5-5.1)
[2017-12-01] MEDS: CEFEPIME IV 2,000 MG in SYRINGE 7.5 ML IV SCH (06:21)
[2017-12-01 07:21] VITALS: BP 104/64; PULSE 73; TEMP 36.8; O2SAT 97
[2017-12-01] MEDS: GABAPENTIN 100 MG CAP PO SCH ×2 (08:11→12:18)
[2017-12-01] MEDS: LOSARTAN POTASSIUM 50 MG TAB PO SCH (08:12)
[2017-12-01] MEDS: ENOXAPARIN 40 MG/0.4 ML SYR SQ SCH (08:14)
--- NOTE | 2017-12-01 09:10 | Progress Note ---
Subjective Date of Service: Dec 01, 2017. Subjective Pt evaluation today including: conversation w/ patient, chart review, lab review Voiding: no voiding problems 52 yo female with UTI and left staghorn calculus. She has remained afebrile for >24hrs. UC&S growing Klebsiella. Sensitive to Cipro and Bactrim. Pt reports she has pain while lying in bed. States she is unable to get comfortable. + nausea with lying down. Denies vomiting. States the nausea is improved with sitting up. Problem List Medical Problems: (1) Blood culture positive for microorganism Status: Acute (2) Chest wall pain Status: Acute (3) Pyelonephritis Status: Acute (4) Pyelonephritis Status: Acute (5) Pyelonephritis Status: Acute (6) Right calf pain Status: Acute (7) UTI (urinary tract infection) Status: Acute Review of Systems Constitutional: No fever, No chills Respiratory: No shortness of breath Cardiac: No chest pain Abdomen: + see HPI, + nausea, No pain, No vomiting Musculoskeletal: + problem reported (left back pain ) Female : No dysuria, No hematuria Heme: No abnormal bleeding/bruising Objective Vital Signs Date Time Temp Pulse Resp B/P (MAP) Pulse Ox O2 Delivery O2 Flow Rate FiO2 12/01/17 08:00 Room Air CPAP 12/01/17 07:21 36.8 73 22 104/64 (77) 97 Room Air 12/01/17 00:00 Room Air CPAP 11/30/17 23:35 37.2 67 20 123/67 (85) 97 CPAP 11/30/17 16:11 36.8 75 18 114/61 (78) 98 Room Air 11/30/17 15:30 Room Air CPAP Physical Exam General Appearance: no apparent distress, + obese Eyes: normal inspection ENT: hearing grossly normal Neck: no JVD Respiratory/Chest: no respiratory distress, no accessory muscle use Cardiovascular: no JVD Extremities: normal inspection Neurologic/Psychiatric: alert, normal mood/affect, oriented x 3 Skin: normal color Laboratory Results Last 24 Hours Test 12/01/17 04:27 Sodium Level 140 mmol/L Potassium Level 3.7 mmol/L Chloride Level 108 mmol/L Carbon Dioxide Level 26 mmol/L Anion Gap 6.0 mmol/L Blood Urea Nitrogen 12 mg/dl Creatinine 0.69 mg/dl Est Creatinine Clear Calc Drug Dose 146.8 ml/min Estimated GFR () 114.4 Estimated GFR (Non- 98.7 BUN/Creatinine Ratio 18.0 Random Glucose 100 mg/dl Calcium Level 8.8 mg/dl Assessment and Plan A/P: Left staghorn calculus, pyelonephritis AFVSS. UC&S growing Klebsiella. Recommend transitioning to 10-14 days of Cipro prior to d/c home. In the process of arranging for PCN placement at [facility] in the next week or so. [facility] urology currently has records to review, and will call to schedule. Once staghorn has been managed at [facility], we will gladly f/u with Mrs. Vera for future stone management of her right renal stones and to assist with metabolic stone eval if desired. No further management at this time. Recall PRN issues. Thanks for allowing us to participate in this pt's care.
[2017-12-01] MEDS ORDERED: CIPR-255 PO (14:31)
--- NOTE | 2017-12-01 14:36 | Discharge Instructions ---
Discharge Instructions Date of Service Dec 01, 2017. Admission Reason for Admission: urinary tract infection, kidney stones . Discharge Discharge Diagnosis / Problem: urinary tract infection, kidney stones Discharge Goals Goal(s): Decrease discomfort, Improve disease control Activity Recommendations Activity Limitations: resume your previous activity . Instructions / Follow-Up Instructions / Follow-Up APPOINTMENTS: [facility] [place] Office should contact you with appointment. [facility] As needed. FAMILY MEDICINE 12/06/2017 3:30 PM Alex Shepherd MD OTHER INSTRUCTIONS: Drink plenty of fluids. Take ciprofloxacin (Cipro) 500 mg twice a day until gone. Seek medical attention if you have: * temperature above 101 * chest pain or trouble breathing * abdominal pain, nausea, vomiting * diarrhea, dark stools or bloody stools * burning when you urinate or blood in urine * any unanswered questions or concerns Call 911 if symptoms are severe. Call if you have any questions or problems. My cell # is [phone]. You can also reach a [facility] hospitalist on duty at [facility] 24 hours a day by calling [phone]. Please take good care of yourself. Pollo Tan . Current Hospital Diet Patient's current hospital diet: Regular Diet Discharge Diet Recommended Diet: AHA Diet (Heart Healthy) Pending Studies Studies pending at discharge: no Laboratory Results Hemoglobin A1c Test 11/28/17 22:01 Range/Units Estimated Average Glucose 120 mg/dl Hemoglobin A1c 5.8 H 4.5-5.6 % Medical Emergencies . Who to Call and When: Medical Emergencies: If at any time you feel your situation is an emergency, please call 911 immediately. . Non-Emergent Contact Non-Emergency issues call your: Primary Care Provider, Hospital Doctor, Urologist . . "Provider Documentation" section prepared by Pollo Tan. . VTE Core Measure Inpt VTE Proph given/why not?: Enoxaparin (Lovenox)SQ
[2017-12-01 14:44] VITALS: BP 104/64; PULSE 73; TEMP 36.8; O2SAT 97
--- NOTE | 2017-12-01 20:35 | Progress Note ---
Medicine Progress Note Date & Time of Visit: Dec 01, 2017 . Subjective CC: Follow-up visit for pyelonephritis. HPI: Doing well. No fever or chills. Minimal left flank pain. No dysuria or hematuria. ROS: General- as noted above in HPI Resp- no cough; no shortness of breath Cardiac- no chest pain, no edema GI- no diarrhea; no nausea, no vomiting - as noted above in HPI Musculoskeletal- chronic back pain . Objective Last 8 Hrs Date Time Temp Pulse Resp B/P (MAP) Pulse Ox O2 Delivery O2 Flow Rate FiO2 12/01/17 14:44 36.8 73 22 97 Room Air CPAP Physical Exam: General- lying in bed; no distress Lungs- clear to auscultation; no respiratory distress Cardiovascular- RRR; no gallop; no JVD; no pretibial edema Abdomen- + bowel sounds, soft, nontender Back- no significant left CVAT Extremities- no cyanosis; no calf tenderness Neuro- alert, oriented Skin- warm & dry . Laboratory Results: Last 24 Hours Test 12/01/17 04:27 Sodium Level 140 mmol/L Potassium Level 3.7 mmol/L Chloride Level 108 mmol/L Carbon Dioxide Level 26 mmol/L Anion Gap 6.0 mmol/L Blood Urea Nitrogen 12 mg/dl Creatinine 0.69 mg/dl Est Creatinine Clear Calc Drug Dose 146.8 ml/min Estimated GFR () 114.4 Estimated GFR (Non- 98.7 BUN/Creatinine Ratio 18.0 Random Glucose 100 mg/dl Calcium Level 8.8 mg/dl Assessment & Plan PYELONEPHRITIS Presented to ED with fever and left flank pain. WBC 14,010. UA showed nitrites, leukocyte esterase, WBC's, bacteria. CT demonstrated left pyelonephritis and nonobstructing nephrolithiasis. Blood and urine cultures obtained. Received cefepime pending culture results. Urine culture grew Klebsiella pneumoniae sensitive to all antibiotics tested except for nitrofurantoin. Therapy transitioned to ciprofloxacin to complete 14 day course of antibiotics. SEPSIS Met criteria for sepsis per 2001 definition and current CMS guidelines (fever, tachycardia, leukocytosis). Likely source = urinary tract. Hemodynamically stable with systolic BP's > 90. WBC 14,010. Lactate 1.2. Blood and urine cultures obtained. Received broad-spectrum antibiotic coverage with cefepime. Ongoing management of UTI as discussed above. NEPHROLITHIASIS CT demonstrated 25 mm calculus left upper kidney and 2 small nonobstructing calculi right kidney. Urology consulted. Elective percutaneous nephrostomy recommended. HISTORY PSVT S/P ablation. HYPERTENSION Continue losartan. SLEEP APNEA Continue CPAP. VTE PROPHYLAXIS SQ enoxaparin. Ambulate. DISPOSITION Discharge to home. Family Medicine follow-up with Dr. Shepherd. [place] [facility] [place] of [place]. [place] Urology follow[place] with [facility] .
--- NOTE | 2017-12-03 08:06 | Discharge Summary ---
Discharge Summary Date of Service Dec 03, 2017. Discharge Summary Admission Date: Nov 29, 2017 at 01:14 Discharge Date: Dec 01, 2017 Discharge Disposition: Home Principal Diagnosis: pyelonephritis Klebsiella pneumoniae with nephrolithiasis . Secondary Diagnoses/Problems: Chronic and Resolved Medical Problems: (1) History of paroxysmal supraventricular tachycardia Status: Chronic (2) Hypertension Status: Chronic (3) Nephrolithiasis Status: Chronic (4) Sleep apnea Permanent Comment: CPAP Status: Chronic Surgical Problems: (1) Status post lumbar surgery Status: Chronic (2) Status post radiofrequency ablation for arrhythmia Permanent Comment: SVT Status: Chronic . Procedures: CT abdomen and pelvis IV antibiotics . Consultations: Urology- GIAN Menendez . Medication Reconciliation New Medications: Ciprofloxacin Hcl (Cipro) 500 Mg Tab 500 MG PO BID, #20 TAB Continued Medications: Fluticasone Propionate (Nasal) (Flonase Allergy Relief) 50 Mcg/Act Spr 2 SPRAYS ALON BID Furosemide (Furosemide) 20 Mg Tab 40 MG PO QAM Gabapentin (Gabapentin) 100 Mg Cap 100 MG PO TID Gabapentin (Neurontin) 100 Mg Cap 200 MG PO QD@2000, CAP Losartan Potassium (Cozaar) 100 Mg Tab 100 MG PO QAM Naproxen (Aleve) 220 Mg Tab 220 MG PO BID, TAB Admission Information HPI (per Admitting provider): Medical history significant for hypertension, chronic back pain status prior surgery, PSVT status post-ablation, sleep apnea on CPAP, recurrent UTI. Patient seen at the ER last January 2017 for flank pain, probable pyelonephritis. Cultures grew Proteus mirabilis. Patient prescribed cefdinir, discharged home, improved. Outpatient renal ultrasound showed a probable 8 mm upper pole left renal parenchymal calculus - not likely related to infection as per PCP. Patient had another bout of UTI late last year resolved with outpatient Cipro. A few days history of achy flank pain more on the left, bladder discomfort. Fever, no chills, no hematuria. No chest pain, no shortness of breath. At the Emergency Room, the patient received Zosyn and Ceftriaxone for sepsis. . Physical Exam (per Admitting): VITAL SIGNS: Blood pressure was noted to be 128/60, pulse rate 107 later 79, RR 18, temp 38 GENERAL: Obese, slightly uncomfortable. Very pleasant. No respiratory distress. SKIN: Normal color, warm. HEENT: [place] palpebral conjunctivae. No ptosis. Dry mucosa. NECK: Short, supple. CHEST: Clear auscultation, no tenderness. HEART: Regular rate and rhythm. No murmur. ABDOMEN: Soft, NT BACK : tenderness on the left flank . EXTREMITIES: Minimal LE edema, no tenderness. No gross deformities. NEUROLOGIC: Coherent. No gross focality. . Hospital Course PYELONEPHRITIS Presented to ED with fever and left flank pain. WBC 14,010. UA showed nitrites, leukocyte esterase, WBC's, bacteria. CT demonstrated left pyelonephritis and nonobstructing nephrolithiasis. Blood and urine cultures obtained. Received cefepime pending culture results. Urine culture grew Klebsiella pneumoniae sensitive to all antibiotics tested except for nitrofurantoin. Therapy transitioned to ciprofloxacin to complete 14 day course of antibiotics. SEPSIS Met criteria for sepsis per 2001 definition and current CMS guidelines (fever, tachycardia, leukocytosis). Likely source = urinary tract. Hemodynamically stable with systolic BP's > 90. WBC 14,010. Lactate 1.2. Blood and urine cultures obtained. Received broad-spectrum antibiotic coverage with cefepime. Ongoing management of UTI as discussed above. NEPHROLITHIASIS CT demonstrated 25 mm calculus left upper kidney and 2 small nonobstructing calculi right kidney. Urology consulted. Elective percutaneous nephrostomy recommended. HISTORY PSVT S/P ablation. HYPERTENSION Continue losartan. SLEEP APNEA Continue CPAP. VTE PROPHYLAXIS SQ enoxaparin. Ambulate. DISPOSITION Discharge to home. Family Medicine follow-up with Dr. Shepherd. [place] [facility] [place] Urology follow-up with [facility]. . Total time spent on discharge = 40. This includes examination of the patient, discharge planning, medication reconciliation, and communication with other providers. . Discharge Instructions Discharge Instructions Date of Service Dec 01, 2017. Admission Reason for Admission: urinary tract infection, kidney stones . Discharge Discharge Diagnosis / Problem: urinary tract infection, kidney stones Discharge Goals Goal(s): Decrease discomfort, Improve disease control Activity Recommendations Activity Limitations: resume your previous activity . Instructions / Follow-Up Instructions / Follow-Up APPOINTMENTS: [facility] [place] Office should contact you with appointment. [facility] As needed. FAMILY MEDICINE 12/06/2017 3:30 PM Alex Shepherd MD OTHER INSTRUCTIONS: Drink plenty of fluids. Take ciprofloxacin (Cipro) 500 mg twice a day until gone. Seek medical attention if you have: * temperature above 101 * chest pain or trouble breathing * abdominal pain, nausea, vomiting * diarrhea, dark stools or bloody stools * burning when you urinate or blood in urine * any unanswered questions or concerns Call 911 if symptoms are severe. Call if you have any questions or problems. My cell # is [phone]. You can also reach a [facility] hospitalist on duty at [facility] 24 hours a day by calling [phone]. Please take good care of yourself. Pollo Tan . Current Hospital Diet Patient's current hospital diet: Regular Diet Discharge Diet Recommended Diet: AHA Diet (Heart Healthy) Pending Studies Studies pending at discharge: no Laboratory Results Hemoglobin A1c Test 11/28/17 22:01 Range/Units Estimated Average Glucose 120 mg/dl Hemoglobin A1c 5.8 H 4.5-5.6 % Medical Emergencies . Who to Call and When: Medical Emergencies: If at any time you feel your situation is an emergency, please call 911 immediately. . Non-Emergent Contact Non-Emergency issues call your: Primary Care Provider, Hospital Doctor, Urologist . . "Provider Documentation" section prepared by Pollo Tan. . VTE Core Measure Inpt VTE Proph given/why not?: Enoxaparin (Lovenox)SQ . Additional Copies To Kari Barraza CRNP
== END 2017-12-01 15:22 | disposition home or self-care (01) | DRG 872 ==
LOC: C.EDB 20:14 → C.MS2W 11-29 01:14 → ENRESERV 11-29 01:26
PROVIDERS: ADMIT Internal Medicine; ATTEND Hospitalist
DX: A41.9 Sepsis, unspecified organism (principal); N39.0 Urinary tract infection, site not specified; N12 Tubulo-interstitial nephritis, not specified as acute or chronic; B96.1 Klebsiella pneumoniae [K. pneumoniae] as the cause of diseases classified elsewhere; N20.0 Calculus of kidney; I10 Essential (primary) hypertension; R73.9 Hyperglycemia, unspecified; G89.29 Other chronic pain; M54.9 Dorsalgia, unspecified; G47.30 Sleep apnea, unspecified; Z87.440 Personal history of urinary (tract) infections; Z86.79 Personal history of other diseases of the circulatory system; Z98.890 Other specified postprocedural states; Z79.1 Long term (current) use of non-steroidal anti-inflammatories (NSAID); Z79.51 Long term (current) use of inhaled steroids; Z79.899 Other long term (current) drug therapy; Z82.49 Family history of ischemic heart disease and other diseases of the circulatory system; Z83.3 Family history of diabetes mellitus; Z80.0 Family history of malignant neoplasm of digestive organs; Z80.3 Family history of malignant neoplasm of breast; Z80.41 Family history of malignant neoplasm of ovary

== ENCOUNTER 2019-04-19 13:02 | Observation (INO) ==
--- OUTSIDE RECORDS SUMMARY | 2019-04-19 13:05 | External Medical Summary | Continuity of Care Document ---
:1965 Author Name Clay M.Keny Address Unavailable Unavailable , Care Team Providers Name Role Phone Unavailable Unavailable Unavailable PCP, UNKNOWN Unavailable Unavailable Problems Staghorn calculus (592.0) (N20.0) Allergies and Adverse Reactions Allergy history not documented Medications Medications not documented Procedures Procedures not documented Immunizations Immunizations not documented Plan of Treatment Planned Observations Planned Goals not documented Results No Known Results Results not documented
[2019-04-19] MEDS ORDERED: LORazepam 1 MG/2 ML VIAL IV STA (13:34)
[2019-04-19] MEDS ORDERED: ASPIRIN CHEW 324 MG PO STA (13:34)
--- NOTE | 2019-04-19 13:53 | XRay Report ---
XR chest 1V portable HISTORY: 53 years-old Female Chest Pain acute atypical chest pain COMPARISON: Chest radiograph 11/10/2016 TECHNIQUE: Portable AP view of the chest FINDINGS: Cardiomediastinal and hilar silhouettes are within normal limits. No pneumothorax, pleural effusion, focal airspace consolidation or overt pulmonary edema. Degenerative changes are seen about the should ers and spine. IMPRESSION: No acute process. The above report was generated using voice recognition software. It may contain grammatical, syntax o r spelling errors. Electronically signed by: Toy Orosco M.D. 04/19/2019 1:52 PM
[2019-04-19] MEDS ORDERED: LORazepam 2 MG/ML VIAL (IM USE) ONE (14:01)
[2019-04-19 14:15] LABS: Hematocrit (blood only) 38.3 % (37-47); Hemoglobin 13.5 g/dL (12.0-16.0); Immature Granulocytes # (auto) 0.09 K/uL (0.00-0.02); Immature Granulocytes % (auto) 0.6 %; Lymphocytes # (auto) 1.41 K/uL (1.2-3.4); Lymphocytes % (auto) 8.7 %; Mean Corpuscular Hgb Conc 35.2 g/dL (32-36); Mean Corpuscular Volume 84.4 fL (80-100); Mean Platelet Volume 10.1 fL (7.4-10.4); Monocytes # (auto) 0.54 K/uL (0.11-0.59); Monocytes % (auto) 3.3 %; Neutrophils # (auto) 14.22 K/uL (1.4-6.5); Neutrophils % (auto) 87.4 %; Platelet Count 278 K/uL (130-400); RDW Standard Deviation 39.5 fL (36.4-46.3); Red Blood Count 4.54 M/uL (4.2-5.4); White Blood Count 16.26 K/uL (4.8-10.8)
[2019-04-19 14:32] LABS: Alanine Aminotransferase 53 U/L (12-78); Albumin Level 3.7 gm/dl (3.4-5.0); Aspartate Aminotransferase 24 U/L (15-37); BUN Creatinine Ratio 21.6 (10-20); Blood Urea Nitrogen 22 mg/dl (7-18); Calcium 10.1 mg/dl (8.5-10.1); Carbon Dioxide 23 mmol/L (21-32); Chloride 101 mmol/L (98-107); Creatinine Clr Calc Pharmacy 105.4 ml/min; Est GFR (African American) 73.5; Est GFR (Non-African American) 63.4; Glucose 167 mg/dl (70-99); Sodium 134 mmol/L (136-145)
[2019-04-19 14:35] LABS: Partial Thromboplastin Ratio 0.9; Partial Thromboplastin Time 25.4 Seconds (21.0-31.0); Prothrombin Time 10.4 Seconds (9.0-12.0)
[2019-04-19 14:37] LABS: Alkaline Phosphatase 89 U/L (45-117); Bilirubin,Total 0.3 mg/dl (0.2-1); Globulin 3.9 gm/dl (2.5-4.0); Total Protein 7.6 gm/dl (6.4-8.2); Troponin I < 0.015 ng/ml (0-0.045)
--- NOTE | 2019-04-19 16:31 | Emergency Department Note ---
Entered by Juan Nelson acting as a scribe for Buck George DO History of Present Illness General Chief complaint: Allergic Reaction Stated complaint: ALLERGIC REACTION TO CORTISONE SHOTS Time Seen by Provider: 04/19/19 13:29 Source: patient History of Present Illness Onset (ago): day(s) 1 Location: chest Pain Consistency: + other (persistent ) Quality: + other (chest heaviness) Associated symptoms: + diaphoresis, + headaches and + shortness of breath The patient is a 53 year old female who presents to the Emergency Room with complaints of persistent chest heaviness beginning yesterday. The patient reports that yesterday she had cortisone injections, and afterward she developed her chest pain. She states that her chest pain is somewhat improved from yesterday, but it worsens with exertion. She notes that her pain is not worsened with breathing. She also reports shortness of breath, headaches, and diaphoresis. She called her PCPs office today and was instructed to report to the ER. She states that she has had minor reactions to cortisone in the past but not to this extent. She reports a history of anxiety that is not currently treated with medication, and she has recently experienced additional stress re lated to the health of family members. She has diabetes and states that her blood sugar has been in the 200s yesterday and today. She reports that she recently had a cardiac stress test that was unremarkable. She reports a history of surgery for SVT over 10 years ago, although she does not believe she has had a cardiac catheterization. She notes that she had caffeine today. Home Medications Home Medications Medication Instructions Recorded Confirmed Type diclofenac sodium 75 mg PO BID 10/10/18 04/19/19 History fluticasone propionate [Flonase 2 spray INTRANASAL QAM PRN 10/10/18 04/19/19 History Allergy Relief] furosemide [Lasix] 40 mg PO QAM PRN 10/10/18 04/19/19 History losartan 100 mg PO QAM 10/10/18 04/19/19 History metformin 500 mg PO BIDM 10/29/18 04/19/19 History triamterene-hydrochlorothiazid 1 tab PO QAM 11/15/18 04/19/19 History [Maxzide-25mg] Allergies Allergy/AdvReac Type Severity Reaction Status Date / Time caffeine AdvReac Tachycardia Verified 04/19/19 15:45 Past Med/Surg History Medical History Sleep apnea (Chronic) CPAP HS History of paroxysmal supraventricular tachycardia (Chronic) S/P CARDIAC ABLATION 6 YEARS AGO. [facility]. Kidney stones (Chronic) Degenerative disc disease (Chronic) Osteoarthritis (Chronic) GERD (gastroesophageal reflux disease) (Chronic) DIET CONTROLLED Morbid obesity (Chronic) Hypoglossal nerve paralysis (Chronic) Per pt, 2/2 prolonged intubation in Trendelenberg (10hrs) and pressure from ETT. Per discharge summary, patient developed swollen tongue 2/2 Ancef barbara rgy. Anesthesia course was uneventful other than need for cricoid pressure with intubation. Impaired mobility (Resolved) PT MUST BE LOG ROLLED IN BED S/T PAST SPINAL FUSION Surgical History History of surgery (Chronic) REMOVAL OF STAGHORN STONE FROM KIDNEY, POSTERIOR ENTRY History of cardiac radiofrequency ablation (Chronic) FOR SVT History of bilateral tubal ligation (Chronic) History of dilatation and curettage (Chronic) History of arthroscopy (Chronic) KNEE Fusion of spine (Chronic) LUMBAR-- FUSED L1-L5 Family History Mother Atrial fibrillation Grandmother (Maternal) Heart disease Myocardial infarction Social History Preferred Language: Macedonian Communication Ability: Effective Emergency Communications Officer Required: No Beliefs That Will Affect Care: Religion Religion Beliefs: Latter-Day marital status: Current Living Situation: Spouse and Family Other Information That Helps Us Care for You: No Feels Safe at Home: Yes Safety Concerns: Feels Safe At This Time Smoking Status: Never smoker Do You Dip or Chew Tobacco: No Second Hand Exposure: No Hx Alcohol Use: No Hx Substance Use: No Review of Systems See HPI for pertinent positives & negatives. and A total of 10 systems reviewed and were otherwise negative Physical Exam Vital Signs Vital Signs - 24 hr 04/19/19 13:05 04/19/19 13:22 04/19/19 13:24 Temperature 36.8 C Temperature Source Oral Sepsis Recent Fever Within 48 Hours No Sepsis Action Taken by Nursing No Action Required Pulse Rate 100 H 93 H 90 Pulse Rate from SpO2 Sensor 88 Respiratory Rate 20 27 H 21 Respiratory Depth Normal Blood Pressure 147/59 H 168/83 H Blood Pressure Mean 88 111 Pulse Oximetry 98 97 Oxygen Delivery Method Room Air 04/19/19 13:30 04/19/19 13:31 04/19/19 13:35 Temperature Temperature Source Sepsis Recent Fever Within 48 Hours Sepsis Action Taken by Nursing Pulse Rate 78 89 Pulse Rate from SpO2 Sensor 78 89 Respiratory Rate 22 15 Respiratory Depth Blood Pressure 142/72 H Blood Pressure Mean 95 Pulse Oximetry 97 98 97 Oxygen Delivery Method Room Air 04/19/19 14:00 04/19/19 14:01 04/19/19 14:30 Temperature Temperature Source Sepsis Recent Fever Within 48 Hours Sepsis Action Taken by Nursing Pulse Rate 77 75 75 Pulse Rate from SpO2 Sensor 74 Respiratory Rate 20 20 Respiratory Depth Blood Pressure 130/54 L Blood Pressure Mean 79 Pulse Oximetry 93 Oxygen Delivery Method 04/19/19 14:31 04/19/19 14:32 04/19/19 15:00 Temperature Temperature Source Sepsis Recent Fever Within 48 Hours Sepsis Action Taken by Nursing Pulse Rate 68 72 71 Pulse Rate from SpO2 Sensor 70 73 71 Respiratory Rate Respiratory Depth Blood Pressure 159/76 H Blood Pressure Mean 103 Pulse Oximetry 94 96 98 Oxygen Delivery Method Room Air 04/19/19 15:01 04/19/19 15:02 04/19/19 15:30 Temperature Temperature Source Sepsis Recent Fever Within 48 Hours Sepsis Action Taken by Nursing Pulse Rate 77 77 77 Pulse Rate from SpO2 Sensor 74 77 Respiratory Rate 20 26 H Respiratory Depth Blood Pressure 150/75 H Blood Pressure Mean 100 Pulse Oximetry 98 98 Oxygen Delivery Method 04/19/19 15:31 04/19/19 15:32 04/19/19 16:00 Temperature Temperature Source Sepsis Recent Fever Within 48 Hours Sepsis Action Taken by Nursing Pulse Rate 79 82 70 Pulse Rate from SpO2 Sensor 78 83 69 Respiratory Rate 17 20 23 Respiratory Depth Blood Pressure 160/71 H Blood Pressure Mean 100 Pulse Oximetry 99 100 Oxygen Delivery Method 04/19/19 16:01 Temperature Temperature Source Sepsis Recent Fever Within 48 Hours Sepsis Action Taken by Nursing Pulse Rate 67 Pulse Rate from SpO2 Sensor 68 Respiratory Rate 12 Respiratory Depth Blood Pressure 156/79 H Blood Pressure Mean 104 Pulse Oximetry 98 Oxygen Delivery Method GENERAL: Patient is awake, alert, and somewhat anxious appearing. EYES: The conjunctivae are clear. The pupils are round and reactive. EARS, NOSE, MOUTH AND THROAT: The nose is without any evidence of any deformity. Mucous membranes are moist.Tongue is midline NECK: The neck is nontender and supple. RESPIRATORY: Normal respiratory effort is noted. There is no evidence of wheezing rhonchi or rales to auscultation. CARDIOVASCULAR: Regular rate and rhythm noted. There no murmurs rubs or gallops normal S1 normal S2 GASTROINTESTINAL: The abdomen is soft. Bowel sounds are present in all quadrants. Abdomen is nontender. MUSCULOSKELETAL/EXTREMITIES: There is no evidence of gross deformity. Full range of motion is noted in the hips and shoulders. SKIN: There is trace pedal edema bilaterally. There is no obvious evidence of any rash. There are no petechiae, pallor or cyanosis noted. NEUROLOGIC: Patient is awake alert and oriented x3. Course 1331: The patient was evaluated in room B7. A complete history and physical examination were performed. 1515: I updated the patient on current findings. 1542: I consulted Rose Martinez PA-C: [facility] Hospitalist. The patient will be reevaluated for hospitalization. Administered Medications Insulin Aspart (Novolog Flexpen) 0 units SC ACHS YULISA Stop: 05/19/19 17:35 Last Admin: 04/19/19 19:05 Dose: 7 units Documented by: [id number] Cosigned by: [id number] Discontinued Medications Aspirin (Aspirin) 324 mg PO NOW STA Stop: 04/19/19 13:35 Last Admin: 04/19/19 14:04 Dose: 324 mg Documented by: [id number] Lorazepam (Ativan) 1 mg in 2 mls @ 2 mls/min IV NOW STA Stop: 04/19/19 13:35 Last Admin: 04/19/19 14:05 Dose: 2 mls/min Documented by: [id number] Lorazepam (Ativan) Confirm Administered Dose 2 mg .ROUTE .STK-MED ONE Stop: 04/19/19 14:02 Last Admin: 04/19/19 14:17 Dose: Not Given Documented by: [id number] Medical Decision Making Differential Diagnosis Differential diagnosis includes: cardiac ischemia, aortic dissection, pulmonary embolism, pneumonia, pneumothorax, musculoskeletal, infections, pericarditis, myocarditis, esophageal rupture, gastrointestinal, as well as others were entertained. Medical Records Attestation: I reviewed the patient's medical records. Home Medications Current Medication List: was personally reviewed by me Laboratory Data Attestation: I reviewed the patient's lab results. Result diagrams: 04/19/19 14:05 04/19/19 14:05 Lab Results 04/19/19 04/19/19 04/19/19 Range/Units 14:05 14:05 14:05 WBC 16.26 H (4.8-10.8) K/uL RBC 4.54 (4.2-5.4) M/uL Hgb 13.5 (12.0-16.0) g/dL Hct 38.3 (37-47) % MCV 84.4 (80-100) fL MCH 29.7 (25-34) pg MCHC 35.2 (32-36) g/dL RDW Std Deviation 39.5 (36.4-46.3) fL RDW Coeff of Bong 13.0 (11.5-14.5) % Plt Count 278 (130-400) K/uL MPV 10.1 (7.4-10.4) fL Immature Gran % (Auto) 0.6 % Neut % (Auto) 87.4 % Lymph % (Auto) 8.7 % [place] % (Auto) 3.3 % Eos % (Auto) 0.0 % Baso % (Auto) 0.0 % Immature Gran # (Auto) 0.09 H (0.00-0.02) K/uL Neut # (Auto) 14.22 H (1.4-6.5) K/uL Lymph # (Auto) 1.41 (1.2-3.4) K/uL [place] # (Auto) 0.54 (0.11-0.59) K/uL Eos # (Auto) 0.00 (0-0.5) K/uL Baso # (Auto) 0.00 (0-0.2) K/uL PT 10.4 (9.0-12.0) Seconds INR 1.0 (0.9-1.1) APTT 25.4 (21.0-31.0) Seconds PTT Ratio 0.9 Sodium 134 L (136-145) mmol/L Potassium 4.0 (3.5-5.1) mmol/L Chloride 101 (98-107) mmol/L Carbon Dioxide 23 (21-32) mmol/L Anion Gap 10.0 (3-11) BUN 22 H (7-18) mg/dl Creatinine 1.00 (0.6-1.2) mg/dl Est Cr Clr Drug Dosing 105.4 ml/min Est GFR ( Amer) 73.5 Est GFR (Non-Af Amer) 63.4 BUN/Creatinine Ratio 21.6 H (10-20) Glucose 167 H (70-99) mg/dl Calcium 10.1 (8.5-10.1) mg/dl Total Bilirubin 0.3 (0.2-1) mg/dl AST 24 (15-37) U/L ALT 53 (12-78) U/L Alkaline Phosphatase 89 (45-117) U/L Troponin I < 0.015 (0-0.045) ng/ml Total Protein 7.6 (6.4-8.2) gm/dl Albumin 3.7 (3.4-5.0) gm/dl Globulin 3.9 (2.5-4.0) gm/dl Albumin/Globulin Ratio 1.0 (0.9-2) Lipase 54 L (73-393) U/L TSH 0.534 (0.300-4.500) uIu/ml Imaging Data Radiologist's Impression: Radiology results as stated below per my review and the radiologist's interpretation: XR chest 1V portable HISTORY: 53 years-old Female Chest Pain acute atypical chest pain COMPARISON: Chest radiograph 11/10/2016 TECHNIQUE: Portable AP view of the chest FINDINGS: Cardiomediastinal and hilar silhouettes are within normal limits. No pne umothorax, pleural effusion, focal airspace consolidation or overt pulmonary edema. Degenerative changes are seen about the shoulders and spine. IMPRESSION: No acute process. The above report was generated using voice recognition software. It may contain grammatical, syntax or spelling errors. Electronically signed by: Toy Orosco M.D. 04/19/2019 1:52 PM ECG Data Attestation: I personally reviewed and interpreted this ECG as follows: Indication: chest pain Rate (beats per minute): 91 Rhythm: normal sinus Findings: + ST depression (lateral); no PAC and no PVC Comparison ECG Date: from (10/19/18) Change: the following changes noted (changes are new) Blood Pressure Blood Pressure Findings: Elevated blood pressure Blood Pressure Disposition: further management by hospitalist MDM Narrative The patient is a 53-year-old female who presented to the emergency department with multiple complaints. She recently received injections in her knees with steroids and thought that some of her symptoms could be caused by this. The patient also complained of chest heaviness. The patient does have a history of diabetes. She is at significant risk for coronary syndrome. She recently did have a stress test for preop testing which did not show any acute problem however today she presents with exertional chest pain as well as dyspnea. I discussed the patient's laboratory and radiographic studies with her. I also discussed the limitations of the emergency department work-up for chest pain with her. She was found to have abnormalities on her EKG which could be consistent with an acute coronary syndrome. For this reason she was treated with aspirin. She also was given Ativan because of significant anxiety. She was feeling much better on subsequent reevaluation. I discussed her case with the on-call [facility] hospitalist group. They have agreed to evaluate the patient in the emergency department for further management and disposition. Impression & Plan Chest pain, Abnormal EKG Discharge Plan Visit Data *Final* Discharge Date/Time: 04/19/19 17:11 Chief Complaint: Allergic Reaction Stated Complaint: ALLERGIC REACTION TO CORTISONE SHOTS ED Provider: Buck George Discharge Problem: Chest pain, Abnormal EKG Patient Disposition: Admitted As Inpatient Discharge Instructions Interventions: ED Discharge Assessment Last Done: 04/19/19 17:11 Discharge Problem: Chest pain Qualifiers: Chest pain type: unspecified Qualified Code(s): R07.9 - Chest pain, unspecified The scribe's documentation has been prepared under my direction and personally reviewed by me in its entirety. I confirm that the note above accurately reflects all work, treatment, procedures, and medical decision making performed by me.
--- NOTE | 2019-04-19 16:48 | History & Physical Report ---
Date of Service April 19, 2019 Assessment & Plan (1) Chest pain: (2) Abnormal EKG: This is a 53-year-old female with a significant past medical history of HTN, morbid obesity, GIANNI on CPAP, history of SVT status post ablation, depression/anxiety, GERD, osteoarthritis, nephrolithiasis, chronic low back pain with history of spinal fusion who presents to [facility] ED secondary to chest heaviness, dyspnea on exertion, anxiousness x1.5 days. In ED patient with slight lateral ST depressions compared to previous tracings; however troponin undetectable She received ASA and ativan with slight improvement of symptoms CBC, CMP relatively unremarkable except for leukocytosis of 16 K and BSG 167 TSH 0.05 Pt facial flushing, sweats and anxiousness possible ADR to steroid inj however given comorbidities of T2DM, HTN, Morbid Obesity will admit under observation for further cardiac assessment admit to tele cycle troponin x 2 repeat ecg echocardiogram in a.m. consult cards in a.m. lorazepam for anxiety (3) Anxiousness: likely secondary to corticosteroid inj lorazepam 0.5mg po q6h prn (4) Leukocytosis: Likely in setting of recent corticosteroid injection No fever or signs or symptoms of infection Repeat CBC in a.m. (5) Hypertension: Continue losartan and Hyzaar Monitor sodium level, 134 today (6) T2DM (type 2 diabetes mellitus): A1c 7.5 09/2018 Repeat A1c in a.m. Hold metformin NovoLog per sliding scale (7) Sleep apnea: cpap at hs (8) Osteoarthritis: Patient with b/l corticosteroid injection to Knee on 04/18/19 on voltaren bid will hold voltaren until ACS ruled out pt states she gets facial flushing and increased anxiety after corticosteroid injection (9) Morbid obesity: encourage life style modifications BMI 58.8 (10) DVT prophylaxis: SCDS/TEDS Disposition: D/C to home when able Follow up: PCP Dr. Shepherd upon discharge Patient was seen and examined in collaboration with Dr. Benedict, please see addendum History of Present Illness Chief Complaint: Chest heaviness x 1.5 days. Primary Care Provider: Alex Shepherd MD This is a 53-year-old female with a significant past medical history of HTN, morbid obesity, GIANNI on CPAP, history of SVT status post ablation, depression/anxiety, GERD, osteoarthritis, nephrolithiasis, chronic low back pain with history of spinal fusion who presents to [facility] ED secondary to chest heaviness, dyspnea on exertion, anxiousness x1.5 days. Patient had corticosteroid injection in bilateral knees yesterday. Usually after injections she gets facial flushing with increased anxiety. She also has been experiencing chest heaviness, substernally, non radiating, waxing and waning for the past 1.5 days. Pain rated 3/10 now and at worse 5/10. Not made worse with exertion but not improved with rest. She states she has had GERD and this feels different. "I may just be anxious but this chest heaviness scared me." Denies hx of panic attack. She has noticed increased sweating (which is not abnormal given the inj). Further complains of increased PEREIRA, RIDDLE, elevated blood glucose, off and on visual changes/blurred vision. She denies recent illness, f/c/s, dizziness, lightheadedness, palpitations, cough, orthopnea, PND, edema, weight change, n/v/d, change in bowel or urinary habits. Patient states she had a nuclear stress test in October due to upcoming planned procedures with hysterectomy and bilateral knee replacement. Stress test and echocardiogram were otherwise unremarkable. She follows with [facility] cardiology. Also notes a history of SVT which required an ablation which happened, "many years ago. " She was not cleared by anesthesia for surgery secondary to morbid obesity and comorbidities. She has been following [employer] for weight loss to have above mentioned surgeries. Allergies Allergy/AdvReac Type Severity Reaction Status Date / Time caffeine AdvReac Tachycardia Verified 04/19/19 15:45 Home Medications Home Medications Medication Instructions Recorded Confirmed Type diclofenac sodium 75 mg PO BID 10/10/18 04/19/19 History fluticasone propionate [Flonase 2 spray INTRANASAL QAM PRN 10/10/18 04/19/19 History Allergy Relief] furosemide [Lasix] 40 mg PO QAM PRN 10/10/18 04/19/19 History losartan 100 mg PO QAM 10/10/18 04/19/19 History metformin 500 mg PO BIDM 10/29/18 04/19/19 History triamterene-hydrochlorothiazid 1 tab PO QAM 11/15/18 04/19/19 History [Maxzide-25mg] Past Med/Surg History Medical History Sleep apnea (Chronic) CPAP HS History of paroxysmal supraventricular tachycardia (Chronic) S/P CARDIAC [place] 6 YE[place] [facility] [place] Kidney stones (Chronic) Degenerative disc disease (Chronic) Osteoarthritis (Chronic) GERD (gastroesophageal reflux disease) (Chronic) DIET CONTROLLED Morbid obesity (Chronic) Hypoglossal nerve paralysis (Chronic) Per pt, 2/2 prolonged intubation in Trendelenberg (10hrs) and pressure from ETT. Per discharge summary, patient developed swollen tongue 2/2 Ancef allergy. Anesthesia course was uneventful other than need for cricoid pressure with intubation. Impaired mobility (Resolved) PT MUST BE LOG ROLLED IN BED S/T PAST SPINAL FUSION Surgical History History of surgery (Chronic) REMOVAL OF STAGHORN STONE FROM KIDNEY, POSTERIOR ENTRY History of cardiac radiofrequency ablation (Chronic) FOR SVT History of bilateral tubal ligation (Chronic) History of dilatation and curettage (Chronic) History of arthroscopy (Chronic) KNEE Fusion of spine (Chronic) LUMBAR-- FUSED L1-L5 Family History Mother Atrial fibrillation Grandmother (Maternal) Heart disease Myocardial infarction Social History Preferred Language: Icelandic Communication Ability: Effective Pointer Helper Required: No Beliefs That Will Affect Care: Baptism Baptism Beliefs: Congregation marital status: Current Living Situation: Spouse and Family Other Information That Helps Us Care for You: No Feels Safe at Home: Yes Safety Concerns: Feels Safe At This Time Smoking Status: Never smoker Do You Dip or Chew Tobacco: No Second Hand Exposure: No Hx Alcohol Use: No Hx Substance Use: No Review of Systems Review of Systems: As noted per HPI, 10 systems reviewed and negative unless noted above. Physical Exam Physical Exam: Gen: Morbidly obese, F, very anxious, flight of ideas, talking very fast, hard to keep focused, otherwise pleasant Head: Normocephalic, Atraumatic Eyes: Sclera normal, no conjunctival injection, PERRLA, EOMI ENT: Gross hearing intact, normal pharynx, mucous membranes moist Neck: supple, no adenopathy, No JVD, no bruit, Resp: Clear to auscultation b/l, no wheeze, rales, rhonchi. 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 Extremities: No edema bilaterally, mild venous stasis changes noted bilateral Skin: warm, moist, no rash, negative turgor, cap refill < 2sec Neuro: Alert and oriented x 3, speech normal, good mood/affect, cran nerve 2-12 intact grossly : deferred Results & Data Vital Signs (Past 12 Hours) Vital Signs Temp Pulse Resp BP Pulse Ox 04/19/19 15:31 79 17 160/71 H 99 04/19/19 15:30 77 26 H 04/19/19 15:02 77 20 98 04/19/19 15:01 77 150/75 H 98 04/19/19 15:00 71 98 04/19/19 14:32 72 96 04/19/19 14:31 68 159/76 H 94 04/19/19 14:30 75 93 04/19/19 14:01 75 20 130/54 L 04/19/19 14:00 77 20 04/19/19 13:35 97 04/19/19 13:31 89 15 142/72 H 98 04/19/19 13:30 78 22 97 04/19/19 13:24 90 21 97 04/19/19 13:22 93 H 27 H 168/83 H 04/19/19 13:05 36.8 C 100 H 20 147/59 H 98 Laboratory Results Short CBC 04/19/19 Range/Units 14:05 WBC 16.26 H (4.8-10.8) K/uL Hgb 13.5 (12.0-16.0) g/dL Hct 38.3 (37-47) % Plt Count 278 (130-400) K/uL BMP 04/19/19 14:05 Sodium 134 L Potassium 4.0 Chloride 101 Carbon Dioxide 23 BUN 22 H Creatinine 1.00 Glucose 167 H Calcium 10.1 Cardiac Enzymes 04/19/19 Range/Units 14:05 Troponin I < 0.015 (0-0.045) ng/ml Liver Function 04/19/19 Range/Units 14:05 Total Bilirubin 0.3 (0.2-1) mg/dl AST 24 (15-37) U/L ALT 53 (12-78) U/L Alkaline Phosphatase 89 (45-117) U/L Albumin 3.7 (3.4-5.0) gm/dl Diagnostic Findings CXR: IMPRESSION: No acute process. Medications Administered Discontinued Medications Aspirin (Aspirin) 324 mg PO NOW STA Stop: 04/19/19 13:35 Last Admin: 04/19/19 14:04 Dose: 324 mg Documented by: [id number] Lorazepam (Ativan) 1 mg in 2 mls @ 2 mls/min IV NOW STA Stop: 04/19/19 13:35 Last Admin: 04/19/19 14:05 Dose: 2 mls/min Documented by: [id number] Lorazepam (Ativan) Confirm Administered Dose 2 mg .ROUTE .STK-MED ONE Stop: 04/19/19 14:02 Last Admin: 04/19/19 14:17 Dose: Not Given Documented by: [id number] ECG Rhythm: normal sinus Findings: + nonspecific-ST abn (v4-v6) Code Status & VTE Plan Code Status Full Code VTE Prophylaxis Plan VTE Prophylaxis will be ordered: Yes Supervising Physician Co-Signing Physician Notes Patient is a 53-year-old female with history of hypertension, SVT, GERD and other problems presents with history of retrosternal chest heaviness, intermittent, nonradiating, associated with shortness of breath on exertion since yesterday. Patient denies any worsening of chest pain with exertion. She admits to being in a lot of stress due to family issues lately. She had corticosteroid injection yesterday to bilateral knees for severe osteoarthritis. Her last stress test in October 2018 showed no signs of ischemia. Please review HPI for complete details of presentation. Initial troponin negative. Leukocytosis noted on labs. No obvious source of infection. Denies any fever chills, diarrhea, abdominal pain, dysuria. EKG showed nonspecific ST changes in the inferolateral leads. Chest pain improved with aspirin, Ativan given in ED. On exam patient is morbidly obese, normocephalic atraumatic, lungs are clear to auscultation, S1-S2, no murmur, abdomen soft,+ obese, grossly no focal neurological deficits, no lower extremity edema noted. Patient is admitted under observation status for evaluation of chest pain to rule out ACS. Trend troponins, EKG in the morning. Check resting echo. Routine cardiology consult. Will consider IV heparin if troponin trends up. Lorazepam PRN for anxiety. No antibiotics for now. Monitor leukocytosis. I personally reviewed the record. Patient is interviewed and examined at bedside. Patient's care is coordinated with Rose Martinez PA-C. Please refer to the documentation above for details of patient's presentation and for discussion of other issues. (1) Chest pain Chest pain type: unspecified Qualified Code(s): R07.9 - Chest pain, unspecified
[2019-04-19] MEDS ORDERED: NITROGLYCERIN SL 0.4 MG/TAB TAB SL PRN (17:36)
[2019-04-19] MEDS ORDERED: POLYETHYLENE (MIRALAX) 17 GM PACK PO PRN (17:36)
[2019-04-19] MEDS ORDERED: GLUCOSE 10 TABS/TUBE PO PRN (17:36)
[2019-04-19] MEDS ORDERED: GLUCOSE 40% GEL 15 GM TUBE PO PRN (17:36)
[2019-04-19] MEDS ORDERED: FLUTICASONE PROPIONATE NA SPR 16 GM BTL PRN (17:36)
[2019-04-19] MEDS ORDERED: ALUMINUM/MAGNESIUM SUSP 30 ML UDC PO PRN (17:36)
[2019-04-19] MEDS ORDERED: LORazepam 0.5 MG TAB PO PRN (17:36)
[2019-04-19] MEDS ORDERED: CARBOHYDRATES FOR HYPOGLYCEMIA PO PRN (17:36)
[2019-04-19] MEDS ORDERED: DEXTROSE 50% 50 ML SYRINGE IV PRN (17:36)
[2019-04-19] MEDS ORDERED: MAGNESIUM HYDROXIDE SUSP 30 ML UDC PO PRN (17:36)
[2019-04-19] MEDS ORDERED: ACETAMINOPHEN 325 MG TAB PO PRN (17:36)
[2019-04-19] MEDS ORDERED: ONDANSETRON INJ 2 MG/ML 2 ML VIAL IV PRN (17:36)
[2019-04-19] MEDS ORDERED: GLUCAGON FOR INJ 1 MG VIAL SQ PRN (17:36)
[2019-04-19] MEDS ORDERED: FAMOTIDINE 20 MG TAB PO PRN (17:48)
[2019-04-19] MEDS: INSULIN ASPART 100 UNITS/ML 3 ML PEN SC SCH ×2 (19:05→20:32)
[2019-04-20 02:12] LABS: Basophils # (auto) 0.01 K/uL (0-0.2); Basophils % (auto) 0.1 %; Eosinophils # (auto) 0.01 K/uL (0-0.5); Eosinophils % (auto) 0.1 %; Hematocrit (blood only) 37.7 % (37-47); Hemoglobin 12.9 g/dL (12.0-16.0); Immature Granulocytes # (auto) 0.04 K/uL (0.00-0.02); Immature Granulocytes % (auto) 0.3 %; Lymphocytes # (auto) 1.79 K/uL (1.2-3.4); Lymphocytes % (auto) 12.4 %; Mean Corpuscular Hgb Conc 34.2 g/dL (32-36); Mean Corpuscular Volume 85.1 fL (80-100); Mean Platelet Volume 9.4 fL (7.4-10.4); Monocytes # (auto) 0.58 K/uL (0.11-0.59); Neutrophils # (auto) 11.95 K/uL (1.4-6.5); Neutrophils % (auto) 83.1 %; Platelet Count 261 K/uL (130-400); RDW Coefficient of Variation 13.1 % (11.5-14.5); RDW Standard Deviation 40.3 fL (36.4-46.3); Red Blood Count 4.43 M/uL (4.2-5.4); White Blood Count 14.38 K/uL (4.8-10.8)
[2019-04-20 02:30] LABS: BUN Creatinine Ratio 25.7 (10-20); Blood Urea Nitrogen 25 mg/dl (7-18); Calcium 9.1 mg/dl (8.5-10.1); Carbon Dioxide 27 mmol/L (21-32); Chloride 101 mmol/L (98-107); Creatinine Clr Calc Pharmacy 108.7 ml/min; Est GFR (African American) 76.2; Est GFR (Non-African American) 65.8; Glucose 162 mg/dl (70-99); Magnesium 2.1 mg/dl (1.8-2.4); Potassium 4.4 mmol/L (3.5-5.1); Sodium 132 mmol/L (136-145)
[2019-04-20 02:35] LABS: Chol HDL Ratio 3; Cholesterol 162 mg/dl (0-200); HDL Cholesterol 50 mg/dl; LDL Cholesterol Calculated 84 mg/dl; Triglycerides 141 mg/dl (0-150); Troponin I < 0.015 ng/ml (0-0.045); VLDL Cholesterol 28 mg/dl
[2019-04-20 05:55] LABS: Estimated Average Glucose 151 mg/dl; Hemoglobin A1C 6.9 % (4.5-5.6)
[2019-04-20] MEDS ORDERED: PERFLUTREN LIPID MICROSPHERE (DEFINITY) IV ONE (08:15)
[2019-04-20] MEDS: INSULIN ASPART 100 UNITS/ML 3 ML PEN SC SCH ×2 (08:36→12:30)
[2019-04-20] MEDS ORDERED: LOSARTAN POTASSIUM 50 MG TAB PO SCH (09:00)
[2019-04-20] MEDS ORDERED: ASPIRIN 81 MG ECTAB PO SCH (09:00)
[2019-04-20] MEDS ORDERED: TRIAMTERENE/HCTZ 37.5/25MG TAB PO SCH (09:00)
--- NOTE | 2019-04-20 11:02 | Hospitalist Progress Note ---
Date of Service April 20, 2019 Assessment & Plan (1) Chest pain: (2) Abnormal EKG: Patient is a 53 yr female with H/O HTN, morbid obesity, GIANNI on CPAP, history of SVT status post ablation, depression/anxiety, GERD, osteoarthritis, nephrolithiasis, chronic low back pain with history of spinal fusion who presents to [facility] ED secondary to chest heaviness, dyspnea on exertion, anxiousness x1.5 days. Atypical Chest Troponin X 3:Negative EKG shows: Nonspecific ST-T wave changes in inferolateral leads normalized with repeat EKG CXR: No acute process. ECHO: EF: 65-70%, No wall motion abnormalities Last Stress Test:October 2018 showed no signs of ischemia. lipid panel: wnl Chest pain is likely due to steroids/Anxiety/Hypertension Advised to follow up with her Teachers Aide if recurrence of symptoms (3) Anxiousness: likely secondary to corticosteroid inj lorazepam 0.5mg PRN Anxiety improved (4) Leukocytosis: Likely in setting of recent corticosteroid injection No obvious source of infection WBC count trending down (5) Hypertension: Continue losartan, Hyzaar (6) T2DM (type 2 diabetes mellitus): A1C:6.9 Hold metformin NovoLog per sliding scale while hospitalized (7) Sleep apnea: CPAP QHS (8) Osteoarthritis: Patient with b/l corticosteroid injection to Knee on 04/18/19 on voltaren Follow up as outpatient (9) Morbid obesity: encourage life style modifications BMI 58.8 (10) DVT prophylaxis: SCDS/TEDS Disposition: Plan to discharge home today Subjective Patient is seen and examined at bedside Doing much better today Chest pain resolved Denies any shortness of breath, dizziness, nausea, abdominal pain Offers no other complaints Eager to get discharged. Review of Systems Review of Systems: All systems reviewed & are unremarkable except as noted in HPI & below Physical Exam Physical Exam: Physical Exam: Vitals signs as noted above General Appearance:Morbidly Obese, no apparent distress Head: normocephalic, Atraumatic Eyes: normal inspection, EOMI Neck: supple, Trachea midline Respiratory/Chest: Normal breath sounds, CTA Cardiovascular: S1, S2, No murmur Abdomen/GI:Soft, Non tender, Bowel sounds present Extremities/Musculoskelatal:normal inspection, no edema Neurologic/Psych:AAOX3, grossly no focal neurological deficits Skin: normal color, warm Results & Data Vital Signs (Past 12 Hours) Vital Signs Temp Pulse Pulse Resp BP BP Pulse Ox 04/20/19 08:05 36.7 C 62 20 139/77 97 04/20/19 03:17 36.4 C L 59 L 18 135/68 97 04/19/19 23:55 55 L 04/19/19 23:45 36.6 C 62 18 158/78 H 96 Laboratory Results Short CBC 04/19/19 04/20/19 Range/Units 14:05 02:00 WBC 16.26 H 14.38 H (4.8-10.8) K/uL Hgb 13.5 12.9 (12.0-16.0) g/dL Hct 38.3 37.7 (37-47) % Plt Count 278 261 (130-400) K/uL BMP 04/19/19 04/20/19 14:05 02:00 Sodium 134 L 132 L Potassium 4.0 4.4 Chloride 101 101 Carbon Dioxide 23 27 BUN 22 H 25 H Creatinine 1.00 0.97 Glucose 167 H 162 H Calcium 10.1 9.1 Cardiac Enzymes 04/19/19 04/19/19 04/20/19 Range/Units 14:05 19:54 02:00 Troponin I < 0.015 < 0.015 < 0.015 (0-0.045) ng/ml Liver Function 04/19/19 Range/Units 14:05 Total Bilirubin 0.3 (0.2-1) mg/dl AST 24 (15-37) U/L ALT 53 (12-78) U/L Alkaline Phosphatase 89 (45-117) U/L Albumin 3.7 (3.4-5.0) gm/dl (1) Chest pain Chest pain type: unspecified Qualified Code(s): R07.9 - Chest pain, unspecified
--- NOTE | 2019-04-20 11:55 | Discharge Summary ---
Date of Service April 20, 2019 Admission HPI Per Admitting Provider This is a 53-year-old female with a significant past medical history of HTN, morbid obesity, GIANNI on CPAP, history of SVT status post ablation, depression/anxiety, GERD, osteoarthritis, nephrolithiasis, chronic low back pain with history of spinal fusion who presents to [facility] ED secondary to chest heaviness, dyspnea on exertion, anxiousness x1.5 days. Patient had corticosteroid injection in bilateral knees yesterday. Usually after injections she gets facial flushing with increased anxiety. She also has been experiencing chest heaviness, substernally, non radiating, waxing and waning for the past 1.5 days. Pain rated 3/10 now and at worse 5/10. Not made worse with exertion but not improved with rest. She states she has had GERD and this feels different. "I may just be anxious but this chest heaviness scared me." Denies hx of panic attack. She has noticed increased sweating (which is not abnormal given the inj). Further complains of increased PEREIRA, RIDDLE, elevated blood glucose, off and on visual changes/blurred vision. She denies recent illness, f/c/s, dizziness, lightheadedness, palpitations, cough, orthopnea, PND, edema, weight change, n/v/d, change in bowel or urinary habits. Patient states she had a nuclear stress test in October due to upcoming planned procedures with hysterectomy and bilateral knee replacement. Stress test and echocardiogram were otherwise unremarkable. She follows with [facility] cardiology. Also notes a history of SVT which required an ablation which happened, "many years ago. " She was not cleared by anesthesia for surgery secondary to morbid obesity and comorbidities. She has been following [employer] for weight loss to have above mentioned surgeries. Admission Exam Per Admitting Provider Gen: Morbidly obese, F, very anxious, flight of ideas, talking very fast, hard to keep focused, otherwise pleasant Head: Normocephalic, Atraumatic Eyes: Sclera normal, no conjunctival injection, PERRLA, EOMI ENT: Gross hearing intact, normal pharynx, mucous membranes moist Neck: supple, no adenopathy, No JVD, no bruit, Resp: Clear to auscultation b/l, no wheeze, rales, rhonchi. 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 Extremities: No edema bilaterally, mild venous stasis changes noted bilateral Skin: warm, moist, no rash, negative turgor, cap refill < 2sec Neuro: Alert and oriented x 3, speech normal, good mood/affect, cran nerve 2-12 intact grossly : deferred Principal Diagnosis Discharge Information Discharge Diagnosis Atypical Chest Pain Discharge Goals Decrease discomfort,Improve disease control, Improve function Discharge Activity Limitations Resume your previous activity Discharge Data Allergies Allergy/AdvReac Type Severity Reaction Status Date / Time caffeine AdvReac Tachycardia Verified 04/19/19 15:45 Consultations 04/19/19 15:43 ED Decision to Admit Stat Procedures Performed CXR: No acute process. ECHO: EF: 65-70%, No wall motion abnormalities Hospital Course (1) Chest pain: (2) Abnormal EKG: Patient is a 53 yr female with H/O HTN, morbid obesity, GIANNI on CPAP, history of SVT status post ablation, depression/anxiety, GERD, osteoarthritis, nephrolithiasis, chronic low back pain with history of spinal fusion who presents to [facility] ED secondary to chest heaviness, dyspnea on exertion, anxiousness x1.5 days. Atypical Chest Troponin X 3:Negative EKG shows: Nonspecific ST-T wave changes in inferolateral leads normalized with repeat EKG CXR: No acute process. ECHO: EF: 65-70%, No wall motion abnormalities Last Stress Test:October 2018 showed no signs of ischemia. lipid panel: wnl Chest pain is likely due to steroids/Anxiety/Hypertension Advised to follow up with her Manager [employer] if recurrence of symptoms (3) Anxiousness: likely secondary to corticosteroid inj lorazepam 0.5mg PRN Anxiety improved (4) Leukocytosis: Likely in setting of recent corticosteroid injection No obvious source of infection WBC count trending down (5) Hypertension: Continue losartan, Hyzaar (6) T2DM (type 2 diabetes mellitus): A1C:6.9 Hold metformin NovoLog per sliding scale while hospitalized (7) Sleep apnea: CPAP QHS (8) Osteoarthritis: Patient with b/l corticosteroid injection to Knee on 04/18/19 on voltaren Follow up as outpatient (9) Morbid obesity: encourage life style modifications BMI 58.8 (10) DVT prophylaxis: SCDS/TEDS Disposition: Plan to discharge home today Total Time Total Time Spent Total Time Spent (In Minutes): 28 minutes Total Time Includes: Examination of the Patient, Discharge Planning, Medication Reconciliation, Communication With Other Providers and Other Discharge Plan Discharge Items Patient Disposition: Home - Self-Care Reason For Visit: CHEST PAIN Discharge Diagnosis: Atypical Chest Pain Discharge Goals: Decrease discomfort, Improve disease control and Improve function Activity: Resume your previous activity Exercise/Sports: Gradually increase as tolerated Non-emergency contact: Primary Care Provider Call non-emergency contact if: you have any medication questions, your symptoms worsen, your pain is not controlled, your pain is worsening, your pain is unusual for you, your pain is concerning for you and you have a fever Follow-up/Referrals: Alex Shepherd MD [Primary Care Provider] - Diet: Carb Consistent or DM2 and Heart Healthy Addtl Provider Instructions: Follow-up with your primary care physician on April 22, 2019 at 11:00 AM Consider following with your Manager [employer] if you have recurrence of chest pain Seek immediate medical attention if your symptoms reoccur or worsen Prescriptions: Continued furosemide [Lasix] 40 mg Tablet 40 mg PO QAM PRN (Reason: Edema) RF: 0 diclofenac sodium 75 mg Tablet,Delayed Release (Dr/Ec) 75 mg PO BID RF: 0 losartan 100 mg Tablet 100 mg PO QAM RF: 0 fluticasone propionate [Flonase Allergy Relief] 50 mcg/actuation [place],Suspension 2 spray INTRANASAL QAM PRN (Reason: Nasal Congestion) RF: 0 metformin 500 mg Tablet 500 mg PO BIDM RF: 0 triamterene-hydrochlorothiazid [Maxzide-25mg] 37.5-25 mg tablet 1 tab PO QAM RF: 0 Stand-Alone Forms: [facility] Discharge Orders: Discharge Order (Routine); Ordered 04/20/19 Ordered By: Nic Benedict Admission Data Admit Date/Time: 04/19/19 16:19 Attending Provider: Nic Benedict Admit Provider: Nic Benedict Primary Care Provider: Alex Shepherd Other Providers: Morelia Cosby Service: Telemetry Medical Other Interventions: Discharge Summary Assessment (RN) Last Done: 04/20/19 12:44 Pending Studies at Discharge: No DC Date/Time DO NOT enter until pt leaves facility: 04/20/19 13:45
== END 2019-04-20 13:45 | disposition home or self-care (01) ==
LOC: 2N 13:02 → ED 13:02 → 2N 17:11